=== PATIENT | male | born 1940 | race Caucasian/White ===

== ENCOUNTER 2016-11-30 02:12 | Emergency (ER) | payer MEDICARE ==
[2016-11-30 03:25] LABS: Calcium 9.1 mg/dL (8.4-10.2); Magnesium 2.1 mg/dL (1.6-2.3); Potassium 4.4 mmol/L (3.5-5.1); Total Bilirubin 0.4 mg/dL (0.2-1.3); Total Protein 6.4 g/dL (6.3-8.2)
--- NOTE | 2016-11-30 03:25 | XR ---
EXAM: XR Chest, 1 View CLINICAL HISTORY: syncope TECHNIQUE: Frontal view of the chest. COMPARISON: No relevant prior studies available. FINDINGS: Lungs: Unremarkable. No consolidation. Pleural space: Unremarkable. No pneumothorax. Heart: Unremarkable. No cardiomegaly. Mediastinum: Unremarkable. Bones/joints: Moderate degenerative changes in the visualized osseous structures. Suspect osteopenia IMPRESSION: No acute findings.
[2016-11-30 03:27] LABS: Prothrombin Time 10.1 sec (9.0-12.0)
[2016-11-30 03:30] LABS: Basophils # (A) 0.1 k/uL (0-0.2); Basophils % (A) 1 %; CH 33.8; CHCM 34.1; Eosinophils # (A) 0.2 k/uL (0-0.7); Eosinophils % (A) 3 %; HCT 41.1 % (39.0-53.0); HDW 2.22; HGB 13.8 gm/dL (13.0-17.5); Luc # (Auto) 0.24; Luc % (Auto) 5; Lymphocytes # (A) 2.1 k/uL (1.0-4.8); Lymphocytes % (A) 39 %; MCH 33.5 pg (25.0-35.0); MCHC 33.7 g/dL (31.0-37.0); MCV 99.5 fL (80.0-100.0); Monocytes # (A) 0.5 k/uL (0-1.0); Monocytes % (A) 10 %; Neutrophils # (A) 2.3 k/uL (1.3-7.7); Neutrophils % (A) 43 %; RBC 4.13 m/uL (4.30-5.90); RDW 13.3 % (11.5-15.5); WBC 5.4 k/uL (3.8-10.6); WBC (Perox) 5.62
[2016-11-30 03:36] LABS: Creatine Kinase 177 U/L (55-170); Partial Thromboplastin Time 20.1 sec (22.0-30.0)
[2016-11-30 03:50] LABS: Troponin I <0.012 ng/mL (0.000-0.034)
[2016-11-30 03:51] LABS: Appearance,Urine Clear (Clear); Bilirubin,Urine Negative (Negative); Glucose,Urine (UA) Negative (Negative); Ketones,Urine Negative (Negative); Leukocyte Esterase,Urine Negative (Negative); Nitrite,Urine Negative (Negative); PH, Urine 5.5 (5.0-8.0); Particle Count 866; Protein,Urine Negative (Negative); RBC,Urine 13 /hpf (0-5); Specific Gravity,Urine 1.011 (1.001-1.035); UA Billing (MACRO vs. MICRO) MICRO; Urobilinogen,Urine <2.0 mg/dL (<2.0); WBC,Urine <1 /hpf (0-5)
--- NOTE | 2016-11-30 04:03 | ED ---
Syncope HPI - General Chief Complaint: Syncope Stated Complaint: SYNCOPE Time Seen by Provider: 11/30/16 02:21 Source: EMS Mode of arrival: EMS Limitations: no limitations - Related Data Allergies Allergy/AdvReac Type Severity Reaction Status Date / Time penicillin G AdvReac Unknown Verified 11/30/16 02:31 [From Bicillin L-A] Review of Systems ROS Statement: Those systems with pertinent positive or pertinent negative responses have been documented in the HPI. ROS Other: All systems not noted in ROS Statement are negative. Past Medical History Past Medical History: Atrial Fibrillation, GERD/Reflux, Hyperlipidemia, Hypertension History of Any Multi-Drug Resistant Organisms: None Reported Past Surgical History: Heart Catheterization With Stent Past Psychological History: No Psychological Hx Reported Smoking Status: Former smoker Past Alcohol Use History: Daily, Heavy Past Drug Use History: None Reported General Exam Limitations: no limitations Course Vital Signs 11/30/16 11/30/16 02:15 04:17 Temperature 97.1 F L 98.0 F Pulse Rate 76 81 Respiratory 18 16 Rate Blood Pressure 108/72 95/59 O2 Sat by Pulse 98 97 Oximetry Medical Decision Making - Medical Decision Making Patient reassessed and he is still free of symptoms. Discussed with the patient of the test results and also at this point offered admission for continued cardiac monitoring. The patient states that he does not want stay and that he will follow-up with his physician. We discussed return parameters and appropriate follow-up care. - Lab Data Result diagrams: 11/30/16 02:37 11/30/16 02:37 Lab Results 11/30/16 11/30/16 11/30/16 Range/Units 02:37 02:37 02:37 WBC 5.4 (3.8-10.6) k/uL RBC 4.13 L (4.30-5.90) m/uL Hgb 13.8 (13.0-17.5) gm/dL Hct 41.1 (39.0-53.0) % MCV 99.5 (80.0-100.0) fL MCH 33.5 (25.0-35.0) pg MCHC 33.7 (31.0-37.0) g/dL RDW 13.3 (11.5-15.5) % Plt Count 179 (150-450) k/uL Neutrophils % 43 % Lymphocytes % 39 % Monocytes % 10 % Eosinophils % 3 % Basophils % 1 % Neutrophils # 2.3 (1.3-7.7) k/uL Lymphocytes # 2.1 (1.0-4.8) k/uL Monocytes # 0.5 (0-1.0) k/uL Eosinophils # 0.2 (0-0.7) k/uL Basophils # 0.1 (0-0.2) k/uL PT (9.0-12.0) sec INR (<1.2) APTT (22.0-30.0) sec Sodium 142 (137-145) mmol/L Potassium 4.4 (3.5-5.1) mmol/L Chloride 108 H (98-107) mmol/L Carbon Dioxide 24 (22-30) mmol/L Anion Gap 10 mmol/L BUN 24 H (9-20) mg/dL Creatinine 1.50 H (0.66-1.25) mg/dL Est GFR (MDRD) Af Amer 55 (>60 ml/min/1.73 sqM) Est GFR (MDRD) Non-Af 46 (>60 ml/min/1.73 sqM) Glucose 95 (74-99) mg/dL Plasma Lactic Acid Obed (0.7-2.0) mmol/L Calcium 9.1 (8.4-10.2) mg/dL Magnesium 2.1 (1.6-2.3) mg/dL Total Bilirubin 0.4 (0.2-1.3) mg/dL AST 27 (17-59) U/L ALT 36 (21-72) U/L Alkaline Phosphatase 59 (38-126) U/L Total Creatine Kinase 177 H (55-170) U/L CK-MB (CK-2) 2.0 (0.0-2.4) ng/mL CK-MB (CK-2) Rel Index 1.1 Troponin I <0.012 (0.000-0.034) ng/mL Total Protein 6.4 (6.3-8.2) g/dL Albumin 3.8 (3.5-5.0) g/dL Urine Color Urine Appearance (Clear) Urine pH (5.0-8.0) Ur Specific [place] (1.001-1.035) Urine Protein (Negative) Urine Glucose (UA) (Negative) Urine Ketones (Negative) Urine Blood (Negative) Urine Nitrite (Negative) Urine Bilirubin (Negative) Urine Urobilinogen (<2.0) mg/dL Ur Leukocyte Esterase (Negative) Urine RBC (0-5) /hpf Urine WBC (0-5) /hpf 11/30/16 11/30/16 11/30/16 Range/Units 02:37 02:37 03:34 WBC (3.8-10.6) k/uL RBC (4.30-5.90) m/uL Hgb (13.0-17.5) gm/dL Hct (39.0-53.0) % MCV (80.0-100.0) fL MCH (25.0-35.0) pg MCHC (31.0-37.0) g/dL RDW (11.5-15.5) % Plt Count (150-450) k/uL Neutrophils % % Lymphocytes % % Monocytes % % Eosinophils % % Basophils % % Neutrophils # (1.3-7.7) k/uL Lymphocytes # (1.0-4.8) k/uL Monocytes # (0-1.0) k/uL Eosinophils # (0-0.7) k/uL Basophils # (0-0.2) k/uL PT 10.1 (9.0-12.0) sec INR 1.0 (<1.2) APTT 20.1 L (22.0-30.0) sec Sodium (137-145) mmol/L Potassium (3.5-5.1) mmol/L Chloride (98-107) mmol/L Carbon Dioxide (22-30) mmol/L Anion Gap mmol/L BUN (9-20) mg/dL Creatinine (0.66-1.25) mg/dL Est GFR (MDRD) Af Amer (>60 ml/min/1.73 sqM) Est GFR (MDRD) Non-Af (>60 ml/min/1.73 sqM) Glucose (74-99) mg/dL Plasma Lactic Acid Obed 1.8 (0.7-2.0) mmol/L Calcium (8.4-10.2) mg/dL Magnesium (1.6-2.3) mg/dL Total Bilirubin (0.2-1.3) mg/dL AST (17-59) U/L ALT (21-72) U/L Alkaline Phosphatase (38-126) U/L Total Creatine Kinase (55-170) U/L CK-MB (CK-2) (0.0-2.4) ng/mL CK-MB (CK-2) Rel Index Troponin I (0.000-0.034) ng/mL Total Protein (6.3-8.2) g/dL Albumin (3.5-5.0) g/dL Urine Color Yellow Urine Appearance Clear (Clear) Urine pH 5.5 (5.0-8.0) Ur Specific [place] 1.011 (1.001-1.035) Urine Protein Negative (Negative) Urine Glucose (UA) Negative (Negative) Urine Ketones Negative (Negative) Urine Blood Moderate H (Negative) Urine Nitrite Negative (Negative) Urine Bilirubin Negative (Negative) Urine Urobilinogen <2.0 (<2.0) mg/dL Ur Leukocyte Esterase Negative (Negative) Urine RBC 13 H (0-5) /hpf Urine WBC <1 (0-5) /hpf Disposition Clinical Impression: Near syncope, Micturition syncope, Hematuria Disposition: HOME SELF-CARE Condition: Fair Instructions: Hematuria (ED), Lightheadedness (ED) Referrals: Marisol Diop DO [Primary Care Provider] - 1-2 days
[2016-11-30 04:27] VITALS: BP 95/59; PULSE 81; RESP 16; TEMP 98
== END 2016-11-30 04:23 | disposition home or self-care (01) ==
LOC: EC 02:12
DX: R55 Syncope and collapse (principal); R31.9 Hematuria, unspecified; R39.198 Other difficulties with micturition; Z87.891 Personal history of nicotine dependence
CPT/HCPCS: 36415; 71010; 80053; 81001; 82550; 82553; 83605; 83735; 84484; 85025; 85610; 85730; 93005; 99285

== ENCOUNTER 2017-09-14 18:46 | Inpatient (IN) | payer MEDICARE ==
--- NOTE | 2017-09-14 19:04 | ED ---
General Adult HPI - General Stated complaint: rule out TIA Time Seen by Provider: 09/14/17 18:49 Source: patient, EMS, RN notes reviewed Mode of arrival: EMS Limitations: no limitations - History of Present Illness Initial comments: 77-year-old male presenting for evaluation of confusion and word finding difficulty. Patient's symptoms began at noon which was 7 hours prior to evaluation. He states that been ongoing since that time. He denies any weakness or numbness or tingling. Patient's has had an occipital headache since toxoid 4 PM. He does have history of CAD is currently only on aspirin. No anticoagulation. He is otherwise healthy. He states he did golf 18 holes today. Denies chest pain or shortness of breath. Denies fever or chills. Denies vision changes. - Related Data Home Medications Medication Instructions Recorded Confirmed Aspirin 325 mg PO DAILY 09/14/17 09/14/17 Atenolol [Tenormin] 25 mg PO HS 09/14/17 09/14/17 Cholecalciferol (Vitamin D3) 2,000 unit PO DAILY 09/14/17 09/14/17 [Vitamin D3] Ferrous Sulfate [Feosol] 325 mg PO DAILY 09/14/17 09/14/17 Lansoprazole [Prevacid] 30 mg PO DAILY 09/14/17 09/14/17 Coats-3 Fatty Acids/Fish Oil [Fish 1 cap PO BID 09/14/17 09/14/17 Oil 1,000 mg Softgel] Simvastatin [Zocor] 20 mg PO HS 09/14/17 09/14/17 Ubidecarenone [Co Q-10] 100 mg PO DAILY 09/14/17 09/14/17 Allergies Allergy/AdvReac Type Severity Reaction Status Date / Time penicillin G AdvReac Unknown Verified 09/14/17 19:43 [From Bicillin L-A] Review of Systems ROS Statement: Those systems with pertinent positive or pertinent negative responses have been documented in the HPI. ROS Other: All systems not noted in ROS Statement are negative. Past Medical History Past Medical History: Atrial Fibrillation, GERD/Reflux, Hyperlipidemia, Hypertension History of Any Multi-Drug Resistant Organisms: None Reported Past Surgical History: Heart Catheterization With Stent Past Psychological History: No Psychological Hx Reported Smoking Status: Former smoker Past Alcohol Use History: Daily, Heavy Past Drug Use History: None Reported General Exam Limitations: no limitations General appearance: alert, in no apparent distress Head exam: Present: atraumatic, normocephalic Eye exam: Present: normal appearance, PERRL, EOMI ENT exam: Present: normal exam Neck exam: Present: normal inspection. Absent: tenderness, meningismus Respiratory exam: Present: normal lung sounds bilaterally. Absent: respiratory distress, wheezes Cardiovascular Exam: Present: regular rate. Absent: normal rhythm GI/Abdominal exam: Present: soft. Absent: distended, tenderness Extremities exam: Present: normal inspection, normal capillary refill. Absent: pedal edema, calf tenderness Neurological exam: Present: alert, oriented X3, CN II-XII intact. Absent: motor sensory deficit (No dysarthria, expressive aphasia, NIH is 1, ) Psychiatric exam: Present: normal affect, normal mood Skin exam: Present: warm, dry, intact. Absent: cyanosis, diaphoretic Course Vital Signs 09/14/17 09/14/17 09/14/17 18:53 19:11 20:17 Temperature 97.8 F Pulse Rate 67 65 62 Respiratory 18 18 16 Rate Blood Pressure 134/54 131/67 145/75 O2 Sat by Pulse 99 100 100 Oximetry 09/14/17 21:43 Temperature Pulse Rate 63 Respiratory 18 Rate Blood Pressure 137/77 O2 Sat by Pulse 99 Oximetry EKG Findings - EKG Comments: EKG Findings:: EKG normal sinus rhythm, artifact in leads II, III, and aVF, no definitive signs of ischemia. Rate of 61, TN interval 198, QRS duration 90, QTC 416 Medical Decision Making - Medical Decision Making 77-year-old male presenting with expressive aphasia, NIH is 1. Patient is a long bout of TPA window with presentation occurring [address] is obtained, does show a posterior left parietal infarction, proximally 3 cm in the distribution of the MCA. No intracranial hemorrhage. CT angiography is negative for embolus or occlusion. Laboratory studies including CBC, CMP and troponin are unremarkable. Patient is given aspirin in the emergency department. He will be admitted for further stroke workup. Neurology placed on consult. - Lab Data Result diagrams: 09/14/17 19:00 09/14/17 19:00 Lab Results 09/14/17 09/14/17 09/14/17 Range/Units 19:00 19:00 19:00 WBC 5.2 (3.8-10.6) k/uL RBC 4.03 L (4.30-5.90) m/uL Hgb 13.1 (13.0-17.5) gm/dL Hct 38.7 L (39.0-53.0) % MCV 96.0 (80.0-100.0) fL MCH 32.6 (25.0-35.0) pg MCHC 33.9 (31.0-37.0) g/dL RDW 12.7 (11.5-15.5) % Plt Count 154 (150-450) k/uL Neutrophils % (Manual) 24 % Lymphocytes % (Manual) 61 % Monocytes % (Manual) 9 % Eosinophils % (Manual) 4 % Basophils % (Manual) 2 % Neutrophils # (Manual) 1.25 L (1.3-7.7) k/uL Lymphocytes # (Manual) 3.17 (1.0-4.8) k/uL Monocytes # (Manual) 0.47 (0-1.0) k/uL Eosinophils # (Manual) 0.21 (0-0.7) k/uL Basophils # (Manual) 0.10 (0-0.2) k/uL Nucleated RBCs 0 (0-0) /100 WBC Manual Slide Review Performed RBC Morphology Normal PT (9.0-12.0) sec INR (<1.2) APTT (22.0-30.0) sec Sodium 140 (137-145) mmol/L Potassium 4.3 (3.5-5.1) mmol/L Chloride 103 (98-107) mmol/L Carbon Dioxide 26 (22-30) mmol/L Anion Gap 11 mmol/L BUN 22 H (9-20) mg/dL Creatinine 1.34 H (0.66-1.25) mg/dL Est GFR (CKD-EPI)AfAm 60 (>60 ml/min/1.73 sqM) Est GFR (CKD-EPI)NonAf 52 (>60 ml/min/1.73 sqM) Glucose 110 H (74-99) mg/dL Calcium 8.9 (8.4-10.2) mg/dL Total Bilirubin 0.5 (0.2-1.3) mg/dL AST 30 (17-59) U/L ALT 33 (21-72) U/L Alkaline Phosphatase 56 (38-126) U/L Total Creatine Kinase 164 (55-170) U/L CK-MB (CK-2) 1.3 (0.0-2.4) ng/mL CK-MB (CK-2) Rel Index 0.8 Troponin I <0.012 (0.000-0.034) ng/mL Total Protein 6.2 L (6.3-8.2) g/dL Albumin 4.0 (3.5-5.0) g/dL 09/14/17 Range/Units 19:00 WBC (3.8-10.6) k/uL RBC (4.30-5.90) m/uL Hgb (13.0-17.5) gm/dL Hct (39.0-53.0) % MCV (80.0-100.0) fL MCH (25.0-35.0) pg MCHC (31.0-37.0) g/dL RDW (11.5-15.5) % Plt Count (150-450) k/uL Neutrophils % (Manual) % Lymphocytes % (Manual) % Monocytes % (Manual) % Eosinophils % (Manual) % Basophils % (Manual) % Neutrophils # (Manual) (1.3-7.7) k/uL Lymphocytes # (Manual) (1.0-4.8) k/uL Monocytes # (Manual) (0-1.0) k/uL Eosinophils # (Manual) (0-0.7) k/uL Basophils # (Manual) (0-0.2) k/uL Nucleated RBCs (0-0) /100 WBC Manual Slide Review RBC Morphology PT 9.8 (9.0-12.0) sec INR 1.0 (<1.2) APTT 22.4 (22.0-30.0) sec Sodium (137-145) mmol/L Potassium (3.5-5.1) mmol/L Chloride (98-107) mmol/L Carbon Dioxide (22-30) mmol/L Anion Gap mmol/L BUN (9-20) mg/dL Creatinine (0.66-1.25) mg/dL Est GFR (CKD-EPI)AfAm (>60 ml/min/1.73 sqM) Est GFR (CKD-EPI)NonAf (>60 ml/min/1.73 sqM) Glucose (74-99) mg/dL Calcium (8.4-10.2) mg/dL Total Bilirubin (0.2-1.3) mg/dL AST (17-59) U/L ALT (21-72) U/L Alkaline Phosphatase (38-126) U/L Total Creatine Kinase (55-170) U/L CK-MB (CK-2) (0.0-2.4) ng/mL CK-MB (CK-2) Rel Index Troponin I (0.000-0.034) ng/mL Total Protein (6.3-8.2) g/dL Albumin (3.5-5.0) g/dL Critical Care Time Critical Care Time: Yes Total Critical Care Time: 35 Disposition Clinical Impression: Cerebrovascular accident Disposition: ADMITTED IP TO THIS [facility] Condition: Serious Is patient prescribed a controlled substance at d/c from ED?: No Referrals: Marisol Diop DO [Primary Care Provider] - 1-2 days Decision to Admit Reason: Admit from EC Decision Date: 09/14/17 Decision Time: 21:47
[2017-09-14 19:20] LABS: Calcium 8.9 mg/dL (8.4-10.2); Potassium 4.3 mmol/L (3.5-5.1); Total Bilirubin 0.5 mg/dL (0.2-1.3); Total Protein 6.2 g/dL (6.3-8.2)
[2017-09-14 19:22] LABS: Partial Thromboplastin Time 22.4 sec (22.0-30.0); Prothrombin Time 9.8 sec (9.0-12.0)
[2017-09-14 19:27] LABS: HCT 38.7 % (39.0-53.0); HGB 13.1 gm/dL (13.0-17.5); MCH 32.6 pg (25.0-35.0); MCHC 33.9 g/dL (31.0-37.0); Mean Platelet Volume 7.2; Platelet Count 154 k/uL (150-450); RBC 4.03 m/uL (4.30-5.90); RDW 12.7 % (11.5-15.5); WBC 5.2 k/uL (3.8-10.6)
[2017-09-14 19:31] LABS: Creatine Kinase 164 U/L (55-170)
--- NOTE | 2017-09-14 19:34 | CT ---
EXAMINATION: CT brain wo con DATE AND TIME: 09/14/2017 7:22 PM ORDERING PROVIDER: Delroy Nunez MD CLINICAL INDICATION: Neuro Deficits TECHNIQUE: Standard departmental protocol. DLP 1090 mGy-cm. COMPARISON: None. DESCRIPTION: The calvarium is intact. There is no intracranial hemorrhage. There is no mass or mass e ffect. There is a 3 cm zone of low-attenuation posteriorly within the left parietal lobe, extending from a p eriventricular position to the cortex. There is no associated mass effect or volume loss. The finding is consistent with nonhemorrhagic infarction in the vascular territory of the left MCA. There is no other definite new attenuation defect. There are no foci evidence of encephalomalacia to suggest prior infarction. Remainder of the intra-axial and extra-axial compartment examination is unremarkable. The paranasal sinuses, middle ear cavities, and mastoid sinus air cells are clear. The orbits are int act. 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
--- NOTE | 2017-09-14 19:36 | XR ---
EXAMINATION: XR chest 3V DATE AND TIME: 09/14/2017 7:30 PM ORDERING PROVIDER: Delroy Nunez MD CLINICAL INDICATION: altered mental status TECHNIQUE: 2 PA and 1 lateral COMPARISON: 11/30/2016 DESCRIPTION: The lungs are clear. The pleural spaces are negative. The cardiac silhouette is not enlarged. The mediastinal and pleural silhouettes are unremarkable. The skeletal structures are intact without focal findings. The soft tissues are unremarkable. IMPRESSION: NO ACUTE PROCESS.
[2017-09-14] MEDS ORDERED: RX INFO: IV CONTRAST WAS GIVEN 1 EACH MISC MISCELLANE PRN (19:40)
[2017-09-14 19:44] LABS: Creatine Kinase MB 1.3 ng/mL (0.0-2.4); Troponin I <0.012 ng/mL (0.000-0.034)
[2017-09-14] MEDS ORDERED: ASPIRIN 325 MG TAB PO STA (19:51)
[2017-09-14 20:08] LABS: Eosinophils # (M) 0.21 k/uL (0-0.7); Lymphocytes # (M) 3.17 k/uL (1.0-4.8); Monocytes # (M) 0.47 k/uL (0-1.0); Neutrophils # (M) 1.25 k/uL (1.3-7.7); Neutrophils % (M) 24 %; Nucleated Red Blood Cells 0 /100 WBC (0-0); Total Cells Counted 100
--- NOTE | 2017-09-14 20:45 | CT ---
EXAMINATION TYPE: CT angio head neck contrast and with 3-D reconstruction renderings DATE OF EXAM: 09/14/2017 HISTORY: Neuro deficits. COMPARISON: Precontrast brain CT 7:[address] DLP: 255.7 mGycm. Automated Exposure Control for Dose Reduction was Utilized. TECHNIQUE: Departmental protocol CTA scan of the neck is performed with IV Contrast, patient injecte d with 65ml mL of Isovue 370, axial images are obtained, coronal and sagittal reformatted images are reviewed. Three-D reconstructed images are created on an independent workstation and reviewed. FINDINGS: Neck CTA findings: The origins of the great vessels at the aortic arch are widely patent. There are b ilateral carotid siphon stenoses, which do not appear to be hemodynamically significant. The ICA are patent bilaterally. The vertebral arteries are patent bilaterally. Venous structures are unremarkable . The visualized extravascular structures are also unremarkable. Brain CTA findings: The anterior circulation is widely patent. The posterior circulation is widely pa tent. Symmetry is noted. There are no filling defects to suggest emboli and no significant stenoses. The contrast enhancement pattern is unremarkable. Intra-axial and extra-axial compartment evaluation is unremarkable. IMPRESSION: No significant CTA abnormality is seen.
[2017-09-14] MEDS: SODIUM CHLORIDE 0.9% 1,000 ML IV SCH (22:06)
[2017-09-14 22:48] VITALS: BMI 24.3
[2017-09-15 06:59] LABS: Cholesterol 137 mg/dL (<200); HDL Cholesterol 43 mg/dL (40-60); LDL Cholesterol,Calculated 65 mg/dL (0-99); Triglycerides 147 mg/dL (<150)
[2017-09-15] MEDS ORDERED: ASPIRIN 325 MG TAB PO SCH (09:00)
--- NOTE | 2017-09-15 10:21 | ECHOF ---
Referral Reason:Thrombus MEASUREMENTS -------- HEIGHT: 175.3 cm WEIGHT: 75.7 kg BP: 129/58 RVIDd: 3.1 cm (< 3.3) IVSd: 1.0 cm (0.6 - 1.1) LVIDd: 3.1 cm (3.9 - 5.3) LVPWd: 0.9 cm (0.6 - 1.1) IVSs: 1.4 cm LVIDs: 2.1 cm LVPWs: 1.2 cm LA Diam: 2.6 cm (2.7 - 3.8) LAESV Index (A-L): 24.95 ml/m Ao Diam: 3.6 cm (2.0 - 3.7) AV Cusp: 2.1 cm (1.5 - 2.6) MV EXCURSION: 11.280 mm (> 18.000) MV EF SLOPE: 89 mm/s (70 - 150) EPSS: 0.6 cm MV E Gelacio: 0.73 m/s MV DecT: 242 ms MV A Gelacio: 0.65 m/s MV E/A Ratio: 1.12 FINDINGS -------- Sinus rhythm. This was a technically adequate study. The left ventricular size is normal. Left ventricular wall thickness is normal. Overall left vent ricular systolic function is normal with, an EF between 55 - 60 %. The right ventricle is normal in size. Normal LA size by volume 22+/-6 ml/m2. The right atrium is normal in size. The aortic valve is trileaflet and appears structurally normal. There is trace mitral regurgitation. The tricuspid valve appears structurally normal. There is no pulmonic regurgitation present. The aortic root size is normal. Normal inferior vena cava with normal inspiratory collapse consistent with estimated right atrial pre ssure of 5 mmHg. There is no pericardial effusion. CONCLUSIONS -------- 1. Sinus rhythm. 2. This was a technically adequate study. 3. The left ventricular size is normal. 4. Left ventricular wall thickness is normal. 5. Overall left ventricular systolic function is normal with, an EF between 55 - 60 %. 6. The right ventricle is normal in size. 7. Normal LA size by volume 22+/-6 ml/m2. 8. The right atrium is normal in size. 9. The aortic valve is trileaflet and appears structurally normal. 10. There is trace mitral regurgitation. 11. The tricuspid valve appears structurally normal. 12. There is no pulmonic regurgitation present. 13. The aortic root size is normal. 14. Normal inferior vena cava with normal inspiratory collapse consistent with estimated right atrial pressure of 5 mmHg. 15. There is no pericardial effusion. TECHNOLOGY TRAINER: Radha Duffy RDCS
[2017-09-15] MEDS ORDERED: NON-FORMULARY DRUG (Omega-3 Fatty Acids/Fish Oil [Fish Oil 1,000 Mg Softgel] 1 CAP) PO SCH (13:00)
[2017-09-15] MEDS ORDERED: NON-FORMULARY DRUG (Ubidecarenone [Co Q-10] 100 MG) PO SCH (13:00)
--- NOTE | 2017-09-15 14:40 | P.CNNES ---
History of Present Illness Consult date: 09/15/17 Requesting physician: Rocky Braun Reason for Consult: CVA History of Present Illness: Patient is a pleasant 77-year-old male who is being evaluated by the neurology service on 09/15/2017 per the request of Dr. Braun for CVA. Patient states he woke up yesterday morning as he normally does and he did not have symptoms at that time. Patient states he had gone golfing and had golfed 18 holes without problems. He came home and ate lunch and walked to do well which is on his property. Patient states the well is down a little hill and he reports symptoms began at that time. Patient reports he had a hard time getting back up the hill and he became disoriented and started wandering. Patient did make his way back into the house and sat down to rest. Patient states he had difficulty reading and had called his son who advised him to come to the emergency room. Patient's had called EMS and patient was brought to [facility] for further evaluation. Patient denies any recurrence of symptoms. Patient is on aspirin 325 mg by mouth daily in the home setting. Patient denies any lateralizing weakness. Patient denies any speech difficulty but chart states patient had expressive aphasia on admission. Patient had CT of the brain done on admission which showed posterior left parietal lobe 3 cm nonhemorrhagic infarction, and the vascular territory of the left MCA. Patient had CT angiogram of the head and neck which showed no significant abnormality. Vital signs on admission were temperature 97.8, pulse 67, respiratory rate 18, and blood pressure 134/54. Oxygen saturation was 99% on room air. Admission Were Mostly Unremarkable except for Elevated BUN of 22 and Creatinine of 1.34. Lipid Panel Was within Normal Limits. At the time of my evaluation, patient's resting comfortably in bed and appears to be in no acute distress. Review of Systems REVIEW OF SYSTEMS: Otherwise unremarkable and noncontributory. Past Medical History Past Medical History: Atrial Fibrillation, GERD/Reflux, Hyperlipidemia, Hypertension History of Any Multi-Drug Resistant Organisms: None Reported Past Surgical History: Heart Catheterization With Stent Date of Last Stent Placement:: 2008 Past Psychological History: No Psychological Hx Reported Smoking Status: Former smoker Past Alcohol Use History: Daily, Heavy Past Drug Use History: None Reported - Past Family History Father Family Medical History: Myocardial Infarction ([place]) Mother Family Medical History: Cancer Additional Family Medical History / Comment(s): colon cancer Medications and Allergies Home Medications Medication Instructions Recorded Confirmed Type Aspirin 325 mg PO DAILY 09/14/17 09/14/17 History Atenolol [Tenormin] 25 mg PO HS 09/14/17 09/14/17 History Cholecalciferol (Vitamin D3) 2,000 unit PO DAILY 09/14/17 09/14/17 History [Vitamin D3] Ferrous Sulfate [Feosol] 325 mg PO DAILY 09/14/17 09/14/17 History Lansoprazole [Prevacid] 30 mg PO DAILY 09/14/17 09/14/17 History [place]-3 Fatty Acids/Fish Oil [Fish 1 cap PO BID 09/14/17 09/14/17 History Oil 1,000 mg Softgel] Simvastatin [Zocor] 20 mg PO HS 09/14/17 09/14/17 History Ubidecarenone [Co Q-10] 100 mg PO DAILY 09/14/17 09/14/17 History Allergies Allergy/AdvReac Type Severity Reaction Status Date / Time penicillin G AdvReac Unknown Verified 09/14/17 19:43 [From Bicillin L-A] Physical Examination - Vital Signs Vital Signs: Vital Signs Temp Pulse Pulse Resp BP BP Pulse Ox 09/15/17 11:53 65 16 123/69 96 09/15/17 11:15 16 09/15/17 08:00 66 16 113/56 99 09/15/17 02:44 68 16 129/58 98 09/15/17 00:44 52 L 126/64 98 09/14/17 23:44 68 16 130/64 98 09/14/17 22:23 96.4 F L 58 L 14 126/76 99 09/14/17 22:05 98.6 F 09/14/17 21:43 63 18 137/77 99 09/14/17 20:17 62 16 145/75 100 09/14/17 19:11 65 18 131/67 100 09/14/17 18:53 97.8 F 67 18 134/54 99 Intake and Output 09/14/17 09/15/17 09/15/17 22:59 06:59 14:59 Intake Total 200 Output Total 400 475 Balance -200 -475 Intake: Intake, IV Titration 200 Amount Sodium Chloride 0.9% 1, 200 000 ml @ 100 mls/hr IV . Q10H [facility] Rx#:[id number] Output: Urine 400 475 Other: Voiding Method Toilet Toilet Urinal Urinal # Voids 1 Weight 74.843 kg 76.1 kg PHYSICAL EXAM: GENERAL APPEARANCE: Patient is a well-developed, male who appears to be in no acute distress. HEENT: Normocephalic, atraumatic, no facial asymmetry is seen. Neck is supple with no masses felt. CARDIOVASCULAR: Regular rate and rhythm. ABDOMEN: Nontender, nondistended. EXTREMITIES: Show no edema or clubbing. NEUROLOGICAL EXAM: Patient is awake, alert, and oriented 3. Speech and language are normal. Strength is full in all 4 extremities. Sensory exam to light touch is normal in all 4 extremities. No facial asymmetry seen on cranial nerve testing. No pronator drift noted. No tremors or seizure-like activity noted. Results - Laboratory Findings CBC and BMP: 09/14/17 19:00 09/14/17 19:00 Abnormal Lab Findings: Abnormal Labs 09/14/17 09/14/17 19:00 19:00 RBC 4.03 L Hct 38.7 L Neutrophils # (Manual) 1.25 L BUN 22 H Creatinine 1.34 H Glucose 110 H Total Protein 6.2 L Assessment and Plan Plan: Impression: 1. CVA/left MCA distribution 2. CAD/history of stent 3. Hypertension 4. Hyperlipidemia 5. Expressive aphasia, resolved Recommendation: It does appear patient had a cerebrovascular accident with episode of confusion and expressive aphasia. Symptoms have since resolved. As mentioned above, CT of the brain showed posterior left parietal lobe 3 cm nonhemorrhagic infarction, in the vascular territory of the left MCA distribution. CTA of the head and neck showed no significant stenosis or abnormality. EKG showed sinus rhythm. I will switch aspirin to Plavix 75 mg by mouth daily. I will order an MRI of the brain. I will order an EEG, fasting lipid panel, and serum homocysteine level. I recommend speech therapy consult as patient states he is having word finding difficulty at times. I will continue to follow with you. Further recommendations to follow. Thank you for allowing me to participate in the care of your patient. Feel free to call with any questions or concerns. I performed an examination of the patient and discussed the management with the CNA CAREGIVER. I have reviewed the CNA CAREGIVER notes and agree with the findings and plan of care.
[2017-09-15] MEDS ORDERED: ONDANSETRON 4 MG/2 ML VIAL IVP PRN (15:16)
[2017-09-15] MEDS ORDERED: ALPRAZolam 0.25 MG TAB PO PRN (15:16)
[2017-09-15] MEDS ORDERED: NALOXONE 0.4 MG/ML 1 ML VIAL IV PRN (15:16)
[2017-09-15] MEDS ORDERED: ACETAMINOPHEN TAB 325 MG TAB PO PRN (15:16)
[2017-09-15] MEDS ORDERED: MELATONIN 3 MG TABLET PO PRN (15:16)
--- NOTE | 2017-09-15 16:34 | HP ---
HISTORY AND PHYSICAL DATE OF ADMISSION: 09/14/2017 DATE OF SERVICE: 09/15/2017 PRESENTING COMPLAINT: Acute confusion. HISTORY OF PRESENTING COMPLAINT: A very pleasant 77-year-old patient of Dr. Marisol Diop. Chronic stable medical conditions include GERD, hypertension, hyperlipidemia, coronary artery disease with stent in 2008. Patient yesterday was playing golf and then he just did not feel right. The ball was in the pit and he had no trouble going down, but he just felt things were off. He came home and he was somewhat disorganized. His words were fine. Speech was okay. Just a bit disorganized. He was doing things just not the right way. He did complain of some double vision and then later complained of a headache. There was no weakness in the arms or legs. The patient was brought into the ER. Initial CT scan of the brain did show a posterior left parietal lobe non-hemorrhagic infarction in the territory of the left MCA. Patient was started on aspirin, switched over to Plavix by Neurology. Patient is still having trouble ing. Patient's and daughter are at the bedside. No prior history of stroke. REVIEW OF SYSTEMS: CONSTITUTIONAL: None. HEENT: Vision as above. RESPIRATORY: None. CARDIOVASCULAR: None. GASTROINTESTINAL: None. GENITOURINARY: None. MUSCULOSKELETAL: None. DERMATOLOGICAL: None. HEMATOLOGICAL: None. LYMPHATICS: None. PSYCHIATRY: None. NEUROLOGICAL: As above. PAST MEDICAL HISTORY: 1. Atrial fibrillation. 2. GERD. 3. Hypertension. 4. Hyperlipidemia. 5. Coronary artery disease with stent in 2008. PAST SURGICAL HISTORY: Cardiac cath with stent in 2008. SOCIAL HISTORY: The patient does drink alcohol. He did smoke in the past. . FAMILY HISTORY: Myocardial infarction, colon cancer. HOME MEDICATIONS: 1. CO-Q-10 100 mg p.o. daily. 2. Vitamin D3 2000 units p.o. daily. 3. Tenormin 25 mg at bedtime. 4. Fish oil 1 capsule p.o. b.i.d. 5. Zocor 20 mg at bedtime. 6. Iron 325 p.o. daily. 7. Prevacid 30 mg p.o. daily. 8. Aspirin 325 p.o. daily. ALLERGIES: PENICILLIN. PHYSICAL EXAMINATION: Temperature 96.4, pulse 50, respiration 14, blood pressure 126/76, pulse ox 99% on room air. GENERAL APPEARANCE: Average build. Sitting up, comfortable. EYES: Pupils equal. Conjunctivae normal. HEENT: External appearance of nose and ears normal. Oral cavity normal. NECK: JVD not raised. Mass not palpable. RESPIRATORY: Effort normal. Lungs are clear. CARDIOVASCULAR: First and second sounds normal. No edema. ABDOMEN: Soft, nontender. Liver and spleen not palpable. LYMPHATIC: No lymph node palpable in neck or axillae. PSYCHIATRY: Alert and oriented x3. Mood and affect normal. NEUROLOGICAL: Cranial nerves: patient has lack of vision on the right side of his vision field. Otherwise, power and sensation are grossly intact. INVESTIGATIONS: White count 5.2, hemoglobin 13.1, potassium 4.3, BUN 22, creatinine 1.34. CT scan of the brain shows stroke on the left parietal side. ASSESSMENT: 1. Acute stroke, ischemic, in the left parietal area in the territory of the left middle cerebral artery in a right-handed patient causing right homonymous hemianopia. 2. Paroxysmal atrial fibrillation, currently in sinus rhythm. 3. Gastroesophageal reflux disease. 4. Essential hypertension. 5. Hyperlipidemia. 6. Coronary artery disease with prior history of stent. 7. Chronic kidney disease, stage III, probably from nephrosclerosis. PLAN: Patient's aspirin was changed over to Plavix. Will discontinue the Zocor and add Lipitor starting tonight 40 mg a day. Physical Therapy will be consulted. Patient was seen by Neurology. Care was discussed with the patient and his . Questions were answered. MMODL / IJN: [id number] /
[2017-09-15] MEDS: PANTOPRAZOLE 40 MG TABLET PO SCH (17:13)
[2017-09-15] MEDS: CHOLECALCIFEROL 1,000 UNIT TAB PO SCH (17:13)
[2017-09-15] MEDS: FERROUS SULFATE 325 MG TAB PO SCH (17:13)
[2017-09-15] MEDS: CLOPIDOGREL 75 MG TAB PO SCH (17:14)
[2017-09-15] MEDS: ATORVASTATIN 40 MG TAB PO SCH (17:15)
--- NOTE | 2017-09-15 20:29 | MR ---
EXAMINATION TYPE: MR brain wo con DATE OF EXAM: 09/15/2017 COMPARISON: CT 09/14/2017 HISTORY: 77-year-old male Neuro deficits, expressive aphasia, CVA TECHNIQUE: Multiplanar, multisequence images of the brain and brainstem were acquired without IV con trast; Diffusion weighted imaging is performed. FINDINGS: DWI confirms a 4.5 cm area of restricted diffusion and acute infarct in the posterior left parietal l obe involving the cortical region. There is corresponding increased T2/FLAIR weighted signal. T2/FLAIR weighted sequences show moderate scattered burden of bright white matter change particularly in the subcortical and deep white matter regions of both cerebral hemispheres. No midline shift, herniation, effacement of basal cisterns, or extra-axial fluid collection. The ventricles and sulci are age-appropriate. Major intracranial flow voids are intact. Midline structures demonstrate normal morphology. The craniocervical junction is normal. The visualized sinuses are clear and the globes are intact. IMPRESSION: 1. Acute cortical infarct involving a 4.5 cm region of the posterior left parietal lobe greater than 6 hours in duration. 2. No midline shift.
[2017-09-15] MEDS: ATENOLOL 25 MG TAB PO SCH (20:38)
[2017-09-15] MEDS: SODIUM CHLORIDE 0.9% 1,000 ML IV SCH (20:40)
[2017-09-15] MEDS ORDERED: ATORVASTATIN 10 MG TAB PO SCH (21:00)
[2017-09-16] MEDS: PANTOPRAZOLE 40 MG TABLET PO SCH (06:19)
[2017-09-16] MEDS: CHOLECALCIFEROL 1,000 UNIT TAB PO SCH (07:37)
[2017-09-16] MEDS: ATORVASTATIN 40 MG TAB PO SCH (07:38)
[2017-09-16] MEDS: FERROUS SULFATE 325 MG TAB PO SCH (07:38)
[2017-09-16] MEDS: CLOPIDOGREL 75 MG TAB PO SCH (07:38)
[2017-09-16] MEDS: ATENOLOL 25 MG TAB PO SCH (07:38)
[2017-09-16] MEDS ORDERED: ASPIRIN 325 MG TAB PO SCH (09:00)
--- NOTE | 2017-09-16 19:03 | P.PN ---
Subjective Progress Note Date: 09/16/17 Patient is a pleasant 77-year-old male who is being followed by the neurology service for stroke. Patient had episode of confusion and disorganization. Patient also states he was having some visual difficulty as well. Patient states he could see the letters on the page but he could not read words. He denies any lateralizing weakness. He denies any speech difficulty. Patient came to [facility] for evaluation. Computed tomography scan of the brain showed posterior left parietal lobe nonhemorrhagic infarction in the territory of the left MCA. MRI was done which showed acute cortical infarct involving region of the posterior left parietal lobe. Patient is on Plavix 75 mg daily. Patient states he is getting better however he is not yet back to baseline. At the time of my evaluation, patient' s resting comfortably in bed and appears to be in no acute distress. Objective - Vital Signs Vital signs: Vital Signs Temp 96.7 F L 09/16/17 16:00 Pulse 59 L 09/16/17 16:00 Resp 16 09/16/17 16:00 BP 113/57 09/16/17 16:00 Pulse Ox 97 09/16/17 16:00 Intake & Output 09/15/17 09/16/17 09/16/17 18:59 06:59 18:59 Intake Total 337 712 Output Total 850 Balance -513 712 Weight 75.3 kg Intake: Oral 337 712 Output: Urine 850 Other: Voiding Method Toilet Toilet Toilet Urinal Urinal Urinal # Voids 1 1 - Exam PHYSICAL EXAM: GENERAL APPEARANCE: Patient is a well-developed, male who appears to be in no acute distress. HEENT: Normocephalic, atraumatic, no facial asymmetry is seen. Neck is supple with no masses felt. CARDIOVASCULAR: Regular rate and rhythm. ABDOMEN: Nontender, nondistended. EXTREMITIES: Show no edema or clubbing. NEUROLOGICAL EXAM: Patient is awake, alert, and oriented 3. Speech and language are normal. Patient has a right visual field cut. Strength is full in all 4 extremities. Sensory exam to light touch is normal in all 4 extremities. No facial asymmetry seen on cranial nerve testing. No tremors or seizure-like activity noted. - Labs CBC & Chem 7: 09/14/17 19:00 09/14/17 19:00 Assessment and Plan Plan: Impression: 1. CVA/left posterior parietal lobe 2. CAD/history of stent 3. Hypertension 4. Hyperlipidemia 5. Expressive aphasia, resolved 6. Right visual field cut Recommendation: It does appear patient had a cerebrovascular accident with episode of confusion and disorganization. Patient has right visual field cut. Symptoms are resolving. As mentioned above, CT of the brain showed posterior left parietal lobe 3 cm nonhemorrhagic infarction, in the vascular territory of the left MCA distribution. CTA of the head and neck showed no significant stenosis or abnormality. EKG showed sinus rhythm. MRI showed acute cortical infarct involving posterior left parietal lobe. Continue Plavix 75 mg by mouth daily. EEG was done and results are pending. His fasting lipid panel was normal and serum homocysteine level result is pending. Patient is stable from a neurological standpoint for discharge tomorrow. I will continue to follow with you. Further recommendations to follow. I performed an examination of the patient and discussed the management with the CARPET CUTTER. I have reviewed the CARPET CUTTER notes and agree with the findings and plan of care.
--- NOTE | 2017-09-16 22:50 | PN ---
PROGRESS NOTE DATE OF SERVICE: 09/16/2017 PRESENTING COMPLAINT: Stroke. HISTORY OF PRESENTING COMPLAINT: This patient presented with stroke affecting comprehension of his speech and also the visual field. The patient's vision did improve yesterday evening. The patient actually was able to read his novel. MRI did confirm a parietal lobe stroke. No other symptoms. REVIEW OF SYSTEMS: Done for constitutional, cardiovascular, GI, pulmonary; relevant findings as above. CURRENT MEDICATIONS: Reviewed that include: 1. Plavix. 2. Lipitor. EXAMINATION: Temperature 97.4, pulse 60, respirations 18, blood pressure 124/81, pulse ox 99% on room air. GENERAL APPEARANCE: Sitting up, comfortable. EYES: Pupils equal. Conjunctivae normal. HEENT: External appearance of nose and ears normal. Oral cavity normal. NECK: JVD not raised. Mass not palpable. RESPIRATORY: Effort normal. Lungs are clear. CARDIOVASCULAR: First and second sounds normal. No edema. ABDOMEN: Soft, nontender. Liver and spleen not palpable. PSYCHIATRY: Alert and oriented x3. Mood and affect normal. NEUROLOGICAL: The patient states his visual field is better. He is able to actually read a book today. INVESTIGATIONS: LDL is 65. MRI shows a parietal lobe stroke. ASSESSMENT: 1. Acute stroke, ischemic, in the left parietal area of the left middle cerebral artery causing homonymous hemianopia, which is actually improving and also probably affecting the speech area. 2. Paroxysmal atrial fibrillation, currently in sinus rhythm. 3. Gastroesophageal reflux disease. 4. Essential hypertension. 5. Hyperlipidemia. 6. Coronary artery disease with prior history of stent. 7. Chronic kidney disease stage 3, probably from nephrosclerosis. PLAN: Care was discussed with the patient. Given the history of given history of atrial fibrillation, will consult Cardiology to do a HEIDY. MMODL / IJN: [id number] /
[2017-09-17] MEDS: PANTOPRAZOLE 40 MG TABLET PO SCH (06:16)
[2017-09-17] MEDS: FERROUS SULFATE 325 MG TAB PO SCH (07:56)
[2017-09-17] MEDS: ATORVASTATIN 40 MG TAB PO SCH (07:56)
[2017-09-17] MEDS: CLOPIDOGREL 75 MG TAB PO SCH (07:56)
[2017-09-17] MEDS: CHOLECALCIFEROL 1,000 UNIT TAB PO SCH (07:56)
--- NOTE | 2017-09-17 14:14 | P.CRDCN ---
History of Present Illness Consult date: 09/17/17 History of present illness: This is a 77-year-old gentleman with history of ischemic heart disease and previous stent placement done in 2008, and also history of cardiac arrhythmia in the form of APCs and also paroxysmal atrial fibrillation. Apparently he was advised to be on anticoagulation therapy but patient refused. Yesterday, patient was playing golf and developed slight confusion and was not feeling well. Patient went home and apparently was doing things differently. Patient was brought to the hospital and evaluation is consistent with new CVA. Patient has been in sinus rhythm since coming here. Patient was seen by neurology and was advised to change aspirin to Plavix. In view of his history of atrial fibrillation, we're asked to be a HEIDY to rule out intracardiac source of emboli. I discussed with the patient regarding the need to go on anti- cognition therapy,in view of his paroxysmal atrial fibrillation. Patient wants to go on Coumadin. We'll start him on Coumadin after the HEIDY. This is being arranged for tomorrow Review of Systems As per the chart Past Medical History Past Medical History: Atrial Fibrillation, GERD/Reflux, Hyperlipidemia, Hypertension History of Any Multi-Drug Resistant Organisms: None Reported Past Surgical History: Heart Catheterization With Stent Date of Last Stent Placement:: 2008 Past Psychological History: No Psychological Hx Reported Smoking Status: Former smoker Past Alcohol Use History: Daily, Heavy Past Drug Use History: None Reported - Past Family History Father Family Medical History: Myocardial Infarction ([place]) Mother Family Medical History: Cancer Additional Family Medical History / Comment(s): colon cancer Medications and Allergies Home Medications Medication Instructions Recorded Confirmed Type Aspirin 325 mg PO DAILY 09/14/17 09/14/17 History Atenolol [Tenormin] 25 mg PO HS 09/14/17 09/14/17 History Cholecalciferol (Vitamin D3) 2,000 unit PO DAILY 09/14/17 09/14/17 History [Vitamin D3] Ferrous Sulfate [Feosol] 325 mg PO DAILY 09/14/17 09/14/17 History Lansoprazole [Prevacid] 30 mg PO DAILY 09/14/17 09/14/17 History [place]-3 Fatty Acids/Fish Oil [Fish 1 cap PO BID 09/14/17 09/14/17 History Oil 1,000 mg Softgel] Simvastatin [Zocor] 20 mg PO HS 09/14/17 09/14/17 History Ubidecarenone [Co Q-10] 100 mg PO DAILY 09/14/17 09/14/17 History Allergies Allergy/AdvReac Type Severity Reaction Status Date / Time penicillin G AdvReac Unknown Verified 09/14/17 19:43 [From Bicillin L-A] Physical Exam Vitals: Vital Signs Temp Pulse Resp BP Pulse Ox 09/17/17 12:00 71 16 108/70 98 09/17/17 08:00 16 09/17/17 07:54 97.2 F L 16 118/59 96 09/17/17 04:00 97.9 F 61 16 133/63 96 09/17/17 00:00 59 L 18 105/55 97 09/16/17 20:43 96 09/16/17 20:00 97.4 F L 60 18 124/81 99 09/16/17 16:00 96.7 F L 59 L 16 113/57 97 09/16/17 15:06 16 Intake and Output 09/16/17 09/17/17 09/17/17 22:59 06:59 14:59 Intake Total 236 240 Balance 236 240 Intake: Oral 236 240 Other: Voiding Method Toilet Toilet Toilet Urinal Urinal Urinal # Voids 1 Weight 73.9 kg GENERAL EXAM: Patient is alert and oriented and doesn't appear to be in any acute distress HEENT: Normocephalic. Normal reaction of pupils, equal size, normal range of extraocular motion. No erythema or exudates in the throat. NECK: No masses, no nuchal rigidity. CHEST: No chest wall deformity. LUNGS: Equal air entry with no crackles or wheeze. HEART: S1 and S2 normal with no audible mumurs or gallops. Regular rhythm, femorals equal on both sides.. ABDOMEN: No hepatosplenomegaly, normal bowel sounds, no guarding or rigidity. SKIN: No rashes CENTRAL NERVOUS SYSTEM: Patient appears to be patent with his speech EXTREMITIES: No cyanosis, clubbing or edema. Results 09/14/17 19:00 09/14/17 19:00 Current Medications Generic Name Dose Route Start Last Admin Trade Name Freq PRN Reason Stop Dose Admin Acetaminophen 650 mg 09/15/17 15:16 Tylenol Tab PO Q6HR PRN Mild Pain or Fever > 100.5 Alprazolam 0.25 mg 09/15/17 15:16 Xanax PO Q6HR PRN Anxiety Atenolol 25 mg 09/15/17 21:00 09/16/17 07:38 Tenormin PO 25 mg HS SARA Administration Atorvastatin Calcium 40 mg 09/15/17 15:15 09/17/17 07:56 Lipitor PO 40 mg DAILY SARA Administration Cholecalciferol 2,000 unit 09/15/17 13:00 09/17/17 07:56 Vitamin D3 PO 2,000 unit 1200 SARA Administration Clopidogrel Bisulfate 75 mg 09/15/17 14:45 09/17/17 07:56 Plavix PO 75 mg DAILY SARA Administration Ferrous Sulfate 325 mg 09/15/17 13:00 09/17/17 07:56 Feosol PO 325 mg 1200 SARA Administration Melatonin 3 mg 09/15/17 15:16 Melatonin PO HS PRN Insomnia Naloxone HCl 0.2 mg 09/15/17 15:16 Narcan IV Q2M PRN Opioid Reversal Ondansetron HCl 4 mg 09/15/17 15:16 Zofran IVP Q8HR PRN Nausea And Vomiting Pantoprazole Sodium 40 mg 09/15/17 13:15 09/17/17 06:16 Protonix PO 40 mg [id number] SARA Administration Intake and Output 09/16/17 09/17/17 09/17/17 22:59 06:59 14:59 Intake Total 236 240 Balance 236 240 Intake: Oral 236 240 Other: Voiding Method Toilet Toilet Toilet Urinal Urinal Urinal # Voids 1 Weight 73.9 kg 09/14/17 19:00 09/14/17 19:00 EKG Interpretations (text) Sinus rhythm Assessment and Plan (1) Ischemic heart disease Current Visit: Yes Status: Acute Code(s): I25.9 - CHRONIC ISCHEMIC HEART DISEASE, UNSPECIFIED SNOMED Code(s): 701559573 (2) Cerebrovascular accident Current Visit: Yes Status: Acute Code(s): I63.9 - CEREBRAL INFARCTION, UNSPECIFIED SNOMED Code(s): 792035666 (3) Paroxysmal atrial fibrillation Current Visit: Yes Status: Acute Code(s): I48.0 - PAROXYSMAL ATRIAL FIBRILLATION SNOMED Code(s): 322545423 Plan: We will proceed with a HEIDY tomorrow. Patient should be considered for long- term anticoagulation. proceed with further neurology workup
--- NOTE | 2017-09-17 18:30 | EEG ---
ELECTROENCEPHALOGRAM REPORT DATE OF SERVICE: 09/16/2017. REASON FOR TESTING: Stroke. DESCRIPTION OF THE PROCEDURE: This EEG was performed using a 21 channel digital electroencephalograph, following international 10-20 system. DESCRIPTION OF THE RECORDING: From the beginning of the tracing, and with patient's eyes closed, the background rhythm was mostly consisting of 9-10 Hz alpha frequency in the posterior occipital leads. No obvious asymmetry is seen. Photic stimulation was performed with a minimal driving response seen. No pathological waves were elicited. Hyperventilation was not performed. The patient does reach stage II of sleep during the tracing and occasional sleep spindles are seen. No epileptiform discharges were seen. More minimal movement and muscle artifacts are seen later in the tracing. His EKG lead showed a regular rate and rhythm. INTERPRETATION: This asleep and awake EEG can be considered within normal limits. There was no asymmetry seen. No epileptiform discharges were noticed. The absence of epileptiform discharges does not rule out the diagnosis of epilepsy, therefore clinical correlation is recommended. MMJIMBO / CLAIREN: [id number] /
--- NOTE | 2017-09-17 19:32 | P.PN ---
Subjective Progress Note Date: 09/17/17 Patient is a pleasant 77-year-old male who is being followed by the neurology service for stroke. Patient had episode of confusion and disorganization. Patient also states he was having some visual difficulty as well. Patient states he could see the letters on the page but he could not read words. He denies any lateralizing weakness. He denies any speech difficulty. Patient came to [facility] for evaluation. Computed tomography scan of the brain showed posterior left parietal lobe nonhemorrhagic infarction in the territory of the left MCA. MRI was done which showed acute cortical infarct involving region of the posterior left parietal lobe. Patient is on Plavix 75 mg daily. Patient states he is getting better however he is not yet back to baseline. At the time of my evaluation, patient' s resting comfortably in bed and appears to be in no acute distress. 09/17/2017 Patient is a pleasant 77-year-old male is being followed by the neurology service for stroke. Patient's states he is doing much better today. He feels almost back to baseline. Patient is to have a HEIDY done tomorrow. At the time of my evaluation, patient's resting comfortably in bed and appears to be in no acute distress. Objective - Vital Signs Vital signs: Vital Signs Temp 97.2 F L 09/17/17 07:54 Pulse 66 09/17/17 16:00 Resp 16 09/17/17 16:00 BP 108/68 09/17/17 16:00 Pulse Ox 97 09/17/17 16:00 Intake & Output 09/17/17 09/17/17 09/18/17 06:59 18:59 06:59 Intake Total 716 Balance 716 Weight 73.9 kg Intake: Oral 716 Other: Voiding Method Toilet Toilet Urinal Urinal # Voids 1 1 - Exam PHYSICAL EXAM: GENERAL APPEARANCE: Patient is a well-developed, male who appears to be in no acute distress. HEENT: Normocephalic, atraumatic, no facial asymmetry is seen. Neck is supple with no masses felt. CARDIOVASCULAR: Regular rate and rhythm. ABDOMEN: Nontender, nondistended. EXTREMITIES: Show no edema or clubbing. NEUROLOGICAL EXAM: Patient is awake, alert, and oriented 3. Speech and language are normal. Patient has a right visual field cut. Strength is full in all 4 extremities. Sensory exam to light touch is normal in all 4 extremities. No facial asymmetry seen on cranial nerve testing. No tremors or seizure-like activity noted. - Labs CBC & Chem 7: 09/14/17 19:00 09/14/17 19:00 Assessment and Plan Plan: Impression: 1. CVA/left posterior parietal lobe 2. CAD/history of stent 3. Hypertension 4. Hyperlipidemia 5. Expressive aphasia, resolved 6. Right visual field cut Recommendation: It does appear patient had a cerebrovascular accident with episode of confusion and disorganization. Patient has right visual field cut. Symptoms are resolving. As mentioned above, CT of the brain showed posterior left parietal lobe 3 cm nonhemorrhagic infarction, in the vascular territory of the left MCA distribution. CTA of the head and neck showed no significant stenosis or abnormality. EKG showed sinus rhythm. MRI showed acute cortical infarct involving posterior left parietal lobe. Continue Plavix 75 mg by mouth daily. EEG was normal. His fasting lipid panel was normal and serum homocysteine level was normal. Patient is stable from a neurological standpoint for discharge tomorrow if HEIDY is without thrombus. I will continue to follow with you. Further recommendations to follow. I performed an examination of the patient and discussed the management with the NEEDLE LOOM TENDER. I have reviewed the NEEDLE LOOM TENDER notes and agree with the findings and plan of care.
--- NOTE | 2017-09-17 20:23 | PN ---
PROGRESS NOTE DATE OF SERVICE: September 17, 2017 INTERVAL HISTORY: The patient presented with acute parietal stroke affecting the visual alfred slightly greatly improved. Has a history of atrial fibrillation. Patient did not want to take his Coumadin. The patient awaiting a HEIDY. Patient able to read his book. REVIEW OF SYSTEMS: Done for constitutional, cardiovascular, GI, pulmonary, relevant findings as above. CURRENT MEDICATIONS: Reviewed that include Plavix and Lipitor. PHYSICAL EXAMINATION: On examination, afebrile, pulse 116, blood pressure 108/70, pulse ox 98% on room air. General appearance: Sitting up, comfortable. Eyes: Pupils are equal. Conjunctivae normal. HEENT: External appearance of nose and ears normal. Oral cavity normal. Neck: JVD not raised. Mass not palpable. Respiratory effort: Lungs are clear. Cardiovascular 1st and 2nd sounds normal. No edema. ABDOMEN: Soft, nontender. Liver and spleen not palpable. Psychiatry: Alert and oriented times three. Mood and affect normal. Neurological much improved overall. INVESTIGATIONS: No blood work from today. ASSESSMENT: 1. Acute stroke ischemic in the left parietal area of the left middle cerebral artery causing homonymous hemianopsia which actually is improved and speech is also improved. 2. Paroxysmal atrial fibrillation currently in sinus rhythm. This could have been an embolic stroke. 3. Gastroesophageal reflux disease. 4. Essential hypertension. 5. Hyperlipidemia. 6. Coronary artery disease with prior history of stent. 7. Chronic kidney disease stage 3 probably from nephrosclerosis. 8. Rule out cardiac thrombus high probability in setting of atrial fibrillation. PLAN: Await HEIDY. Other medication and treatment plan is to continue. Care was discussed with the patient. MMODL / IJN: [id number] /
[2017-09-17] MEDS: ATENOLOL 25 MG TAB PO SCH (21:03)
[2017-09-18] MEDS: PANTOPRAZOLE 40 MG TABLET PO SCH (06:35)
[2017-09-18 07:42] LABS: Calcium 9.2 mg/dL (8.4-10.2); Potassium 4.2 mmol/L (3.5-5.1)
[2017-09-18] MEDS ORDERED: MIDAZOLAM 2 MG/2 ML VIAL ONE (08:34)
[2017-09-18] MEDS ORDERED: fentaNYL (PF) 50 MCG/ML 2 ML AMP ONE (08:34)
[2017-09-18] MEDS ORDERED: IV FLUID CONTINUATION 1,000 ML IV ONE (08:50)
[2017-09-18] MEDS ORDERED: BENZOCAINE SPRAY 1 CAN MUCOUS MEM ONE (09:00)
[2017-09-18] MEDS ORDERED: fentaNYL (PF) 50 MCG/ML 2 ML AMP IV ONE (09:10)
[2017-09-18] MEDS ORDERED: MIDAZOLAM 2 MG/2 ML VIAL IV ONE (09:10)
--- NOTE | 2017-09-18 09:40 | P.TEE ---
Indications for Procedure(s): CVA Date of Procedure: 09/18/17 Preoperative Diagnosis: CVA, rule out cardiac source of emboli Postoperative Diagnosis: No evidence of intracavitary thrombus. No PFO Procedure(s) Performed: HEIDY Description of Procedure(s): INDICATION: This 77-year-old gentleman with history of ischemic heart disease and possible atrial fibrillation, is admitted to the hospital with an episode of CVA with visual defect and confusional state. Patient is advised to have a HEIDY examination to rule out any cardiac source of emboli. CONSENT: Consent was obtained verbally from patient. PROCEDURE: Patient was brought to the lab in a fasting state. He was prepped and draped in the usual fashion. The throat was sprayed with Cetacaine. A lubricated Omni probe was introduced into the oropharynx and was advanced into the esophagus. Multiple views were obtained. Patient tolerated the procedure well. Color and pulse wave Doppler was done. Saline contrast bubble injection was also performed. FINDINGS: The aortic valve is tricuspid and function normally. The aortic root appeared to be mildly dilated. The mitral valve appeared within normal with mild mitral regurgitation. The tricuspid valve appeared within normal. The interatrial septum showed excessive motion. There doesn't seem to be any spontaneous flow across the interatrial septum. Saline contrast bubble injection did not reveal any shunting across the septum. The left atrial appenda is large but free of any clot. Left ventricular function appeared within normal. There is mild to moderate plaque in the aorta. IMPRESSION:#1. No PFO #2. No clot in the left atrial appendage. #3. Normal valvular function with mild mitral regurgitation. #4. Preserved LV function. #5. Mild plaque in the aorta.
[2017-09-18] MEDS ORDERED: SODIUM CHLORIDE 0.9% 1,000 ML IV SCH (09:45)
[2017-09-18] MEDS: CLOPIDOGREL 75 MG TAB PO SCH (10:27)
[2017-09-18] MEDS: ATORVASTATIN 40 MG TAB PO SCH (10:27)
[2017-09-18] MEDS: FERROUS SULFATE 325 MG TAB PO SCH (10:28)
[2017-09-18] MEDS: CHOLECALCIFEROL 1,000 UNIT TAB PO SCH (10:28)
--- NOTE | 2017-09-18 16:45 | P.PN ---
Subjective Progress Note Date: 09/18/17 Patient is a pleasant 77-year-old male who is being followed by the neurology service for stroke. Patient had episode of confusion and disorganization. Patient also states he was having some visual difficulty as well. Patient states he could see the letters on the page but he could not read words. He denies any lateralizing weakness. He denies any speech difficulty. Patient came to [facility] for evaluation. Computed tomography scan of the brain showed posterior left parietal lobe nonhemorrhagic infarction in the territory of the left MCA. MRI was done which showed acute cortical infarct involving region of the posterior left parietal lobe. Patient is on Plavix 75 mg daily. Patient states he is getting better however he is not yet back to baseline. At the time of my evaluation, patient' s resting comfortably in bed and appears to be in no acute distress. 09/17/2017 Patient is a pleasant 77-year-old male is being followed by the neurology service for stroke. Patient's states he is doing much better today. He feels almost back to baseline. Patient is to have a HEIDY done tomorrow. At the time of my evaluation, patient's resting comfortably in bed and appears to be in no acute distress. 09/18/2017 Patient is a pleasant 77-year-old male is being followed by the neurology service for stroke. Patient is doing much better today. Patient states he is active baseline. Patient is able to read to states he did prior to admission. Patient had a HEIDY done today with no evidence of thrombus. However, cardiology with the patient to stay another day or so for anticoagulation due to atrial fibrillation. At the time of my evaluation, patient is resting comfortably in bed in today with family. Patient appears to be in no acute distress. Objective - Vital Signs Vital signs: Vital Signs Temp 96.2 F L 09/18/17 11:15 Pulse 55 L 09/18/17 11:26 Resp 16 09/18/17 11:26 BP 101/55 09/18/17 11:15 Pulse Ox 98 09/18/17 11:15 Intake & Output 09/17/17 09/18/17 09/18/17 18:59 06:59 18:59 Intake Total 716 300 Output Total 300 Balance 716 0 Weight 73.3 kg Intake: IV 100 Oral 716 200 Output: Urine 300 Other: Voiding Method Toilet Toilet Toilet Urinal Urinal # Voids 1 1 1 - Exam PHYSICAL EXAM: GENERAL APPEARANCE: Patient is a well-developed, male who appears to be in no acute distress. HEENT: Normocephalic, atraumatic, no facial asymmetry is seen. Neck is supple with no masses felt. CARDIOVASCULAR: Regular rate and rhythm. ABDOMEN: Nontender, nondistended. EXTREMITIES: Show no edema or clubbing. NEUROLOGICAL EXAM: Patient is awake, alert, and oriented 3. Speech and language are normal. Patient right visual field cut is almost resolved.. Patient's alexia has resolved. Strength is full in all 4 extremities. Sensory exam to light touch is normal in all 4 extremities. No facial asymmetry seen on cranial nerve testing. No tremors or seizure-like activity noted. - Labs CBC & Chem 7: 09/14/17 19:00 09/18/17 06:59 Labs: Abnormal Lab Results - Last 24 Hours (Table) 09/18/17 Range/Units 06:59 Creatinine 1.40 H (0.66-1.25) mg/dL Assessment and Plan Plan: Impression: 1. CVA/left posterior parietal lobe 2. CAD/history of stent 3. Hypertension 4. Hyperlipidemia 5. Expressive aphasia, resolved 6. Right visual field cut Recommendation: It does appear patient had a cerebrovascular accident with episode of confusion and disorganization. Patient's right visual field cut has almost resolved. As mentioned above, CT of the brain showed posterior left parietal lobe 3 cm nonhemorrhagic infarction, in the vascular territory of the left MCA distribution. CTA of the head and neck showed no significant stenosis or abnormality. EKG showed sinus rhythm. MRI showed acute cortical infarct involving posterior left parietal lobe. Continue Plavix 75 mg by mouth daily. EEG was normal. His fasting lipid panel was normal and serum homocysteine level was normal. Patient is stable from a neurological standpoint for discharge tomorrow if HEIDY is without thrombus. I will continue to follow with you on an as-needed basis. Feel free to call with any questions or concerns. I performed an examination of the patient and discussed the management with the SCHOOL CROSSING GUARD. I have reviewed the SCHOOL CROSSING GUARD notes and agree with the findings and plan of care.
[2017-09-18] MEDS: ATENOLOL 25 MG TAB PO SCH (21:30)
[2017-09-18] MEDS: APIXABAN 5 MG TAB PO SCH (21:30)
--- NOTE | 2017-09-19 00:21 | PN ---
PROGRESS NOTE DATE OF SERVICE: 09/18/2017 PRESENTING COMPLAINT: This is a patient who presented with acute parietal stroke affecting visual field, much improved. The patient has history of atrial fibrillation. Patient had not wanted take anticoagulation in the past. Did have a HEIDY today that came back negative. The patient's vision is nearly back to normal. REVIEW OF SYSTEMS: Done for constitutional, cardiovascular, GI, pulmonary; relevant findings as above. CURRENT MEDICATIONS: Reviewed. EXAMINATION: Temperature 96.2, pulse 55, respiration 16, blood pressure 111/55, pulse ox 98% on room air. GENERAL APPEARANCE: Sitting up in bed, comfortable. EYES: Pupils equal. Conjunctivae normal. HEENT: External appearance of nose and ears normal. Oral cavity normal. NECK: JVD not raised. Mass not palpable. Respiratory effort normal. Lungs are clear. CARDIOVASCULAR: First and seconds sounds normal. No edema. ABDOMEN: Soft, nontender. Liver and spleen not palpable. PSYCHIATRY: Alert and oriented x3. Mood and affect normal. NEUROLOGICAL: No more focal deficits. INVESTIGATIONS: Potassium 4.2, BUN 18, creatinine 1.4. HEIDY negative. ASSESSMENT: 1. Acute stroke in the left parietal area of the left middle cerebral artery, likely ischemic, embolic cannot be ruled out causing hemianopsia, which actually is improved. The patient's speech is also affected, now which is improved. 2. Paroxysmal atrial fibrillation with a HEIDY negative for any thrombus. 3. Gastroesophageal reflux disease. 4. Essential hypertension. 5. Hyperlipidemia. 6. Coronary artery disease, prior history of stent. 7. Chronic kidney disease stage 3, probably from nephrosclerosis. PLAN: The patient is doing medically well. When I spoke to Niki from [employer] TECHNICIAN/Cardiology, she is going to discuss with the patient about anticoagulation, discharge pending decision and medication per Cardiology. MMODL / IJN: [id number] /
[2017-09-19] MEDS: PANTOPRAZOLE 40 MG TABLET PO SCH (06:37)
[2017-09-19 07:50] LABS: Potassium 4.3 mmol/L (3.5-5.1)
[2017-09-19] MEDS: CLOPIDOGREL 75 MG TAB PO SCH (08:47)
[2017-09-19] MEDS: APIXABAN 5 MG TAB PO SCH (08:47)
[2017-09-19] MEDS: ATORVASTATIN 40 MG TAB PO SCH (08:47)
[2017-09-19 10:45] VITALS: RESP 18
[2017-09-19] MEDS: CHOLECALCIFEROL 1,000 UNIT TAB PO SCH (12:19)
[2017-09-19] MEDS: FERROUS SULFATE 325 MG TAB PO SCH (12:19)
[2017-09-19 12:46] VITALS: BP 128/59; PULSE 54; TEMP 97.6
--- NOTE | 2017-09-19 14:55 | P.PN ---
Subjective Progress Note Date: 09/19/17 This is a 77-year-old gentleman with history of ischemic heart disease and prior stent placement, history of cardiac arrhythmia in the form of PACs) atrial fibrillation who has been advised to be on anticoagulation in the past but has refused. He presented to the hospital with symptoms suggesting a CVA. Patient underwent a HEIDY yesterday by Dr. Jordan that did not reveal any evidence of a PFO, no clot in the left atrial appendage, normal valvular function with mild mitral regurg, preserved LV function and mild plaque in the aorta. Patient was noted on review of prior records that he does have paroxysmal atrial fibrillation and was advised strongly to take Eliquis. He has agreed. He has coverage for it. Patient was seen and examined this morning , feeling well overall, eager to be discharged. Hemodynamically he is stable. Objective - Vital Signs Vital signs: Vital Signs Temp 97.6 F 09/19/17 11:35 Pulse 54 L 09/19/17 11:35 Resp 18 09/19/17 11:35 BP 128/59 09/19/17 11:35 Pulse Ox 94 L 09/19/17 11:35 Intake & Output 09/18/17 09/19/17 09/19/17 18:59 06:59 18:59 Intake Total 300 462 Output Total 300 800 Balance 0 -338 Weight 73.5 kg Intake: IV 100 Oral 200 462 Output: Urine 300 800 Other: Voiding Method Toilet Toilet # Voids 1 1 - Exam PHYSICAL EXAMINATION: HEENT: Head is atraumatic, normocephalic. Pupils equal, round. Neck is supple. There is no elevated jugular venous pressure. HEART EXAMINATION: Heart S1, S2 normal. No murmur or gallop heard. CHEST EXAMINATION: Lungs are clear to auscultation and precussion. No chest wall tenderness is noted on palpation or with deep breathing. ABDOMEN: Soft, nontender. Bowel sounds are heard. No organomegaly noted. EXTREMITIES: 2+ peripheral pulses with no evidence of peripheral edema and no calf tenderness noted. NEUROLOGIC patient is awake, alert and oriented -3. . - Labs CBC & Chem 7: 09/14/17 19:00 09/19/17 06:37 Labs: Abnormal Lab Results - Last 24 Hours (Table) 09/19/17 Range/Units 06:37 BUN 21 H (9-20) mg/dL Creatinine 1.60 H (0.66-1.25) mg/dL Assessment and Plan Plan: Assessment and plan #1 acute CVA #2 paroxysmal atrial fibrillation #3 hypertension #4 hyperlipidemia #5 coronary artery disease with prior stent #6 stage III chronic kidney disease Plan Patient may be able to be discharged home today from cardiology's perspective, he will be discharged home on Eliquis 5 mg one tablet by mouth twice a day. Follow-up appointment will be made with Dr. Issa in the office post discharge. DNP note has been reviewed, I agree with a documented findings and plan of care. Patient was seen and examined.
--- NOTE | 2017-09-20 06:19 | DS ---
DISCHARGE SUMMARY DATE OF ADMISSION: September 14, 2017. DATE OF DISCHARGE: September 19, 2017. FINAL DIAGNOSES: 1. Acute stroke in the left parietal area of the left middle cerebral artery, possibly ischemic or embolic in a right-handed patient affecting both the vision and the speech. 2. Paroxysmal atrial fibrillation with HEIDY negative for any thrombus. 3. Gastroesophageal reflux disease. 4. Essential hypertension. 5. Hyperlipidemia. 6. Coronary artery disease prior history of stent. 7. Chronic kidney disease stage 3 from nephrosclerosis. HOSPITAL COURSE: This patient presented with change in his speech and vision was affected. The patient could not read. Subsequently patient vision did come back. Nearly back to normal. Patient was able to read and speech has recovered. The patient did have a HEIDY negative for any thrombus history of atrial fibrillation. EEG did not show any seizure activity. MRI of the brain showed a cortical infarct in the left parietal lobe. 2D echocardiogram showed EF of 55-60%. CONSULTATION: Dr. Christianson from neurology, Dr. Jordan from Cardiology. Today the nurse Gerri called me that she spoke with Dr. Christianson and he wanted the Plavix to be discontinued. The patient is to remain on Eliquis. On examination no neuro deficits. Lungs are clear. The patient has been in sinus rhythm now. DISCHARGE MEDICATIONS: 1. Tenormin 25 mg q.h.s. 2. Vitamin D3 2000 units p.o. daily. 3. Prevacid 30 mg p.o. daily. 4. Lipitor 40 mg daily. 5. Eliquis 5 mg p.o. b.i.d. 6. Plavix discontinued by Dr. Christianson. FOLLOWUP: Follow up with Dr. Issa on September 28, 2017, Marisol Diop on 09/22/17, follow up with Dr. Christianson in 1 week. MMODL / IJN: [id number] /
== END 2017-09-19 14:27 | disposition home or self-care (01) | DRG 66 ==
LOC: EC 18:46 → 6SEL 21:44
PROVIDERS: ADMIT Hospitalist; ATTEND Hospitalist
PROC: B24BZZ4 Ultrasonography of Heart with Aorta, Transesophageal (ICD-10-PCS; principal; 2017-09-18 09:00)
DX: I63.9 Cerebral infarction, unspecified (principal); R47.01 Aphasia; R29.701 NIHSS score 1; K21.9 Gastro-esophageal reflux disease without esophagitis; E78.5 Hyperlipidemia, unspecified; I48.0 Paroxysmal atrial fibrillation; H53.461 Homonymous bilateral field defects, right side; I25.10 Atherosclerotic heart disease of native coronary artery without angina pectoris; I12.9 Hypertensive chronic kidney disease with stage 1 through stage 4 chronic kidney disease, or unspecified chronic kidney disease; N18.3 Chronic kidney disease, stage 3 (moderate); I49.1 Atrial premature depolarization; Z95.5 Presence of coronary angioplasty implant and graft; Z79.82 Long term (current) use of aspirin; Z79.899 Other long term (current) drug therapy; Z88.0 Allergy status to penicillin; Z87.891 Personal history of nicotine dependence; Z82.49 Family history of ischemic heart disease and other diseases of the circulatory system; Z80.0 Family history of malignant neoplasm of digestive organs
CPT/HCPCS: 36415; 70450; 70496; 70498; 70551; 71046; 80048; 80053; 80061; 82550; 82553; 83090; 84484; 85025; 85610; 85730; 93005; 93306; 93312; 93320; 93325; 94760; 95819; 99291

== ENCOUNTER 2018-12-23 09:24 | Observation (INO) | payer MEDICARE ==
--- NOTE | 2018-12-23 09:34 | ED ---
General Adult HPI - General Stated complaint: A-Fib Time Seen by Provider: 12/23/18 09:24 Source: RN notes reviewed - History of Present Illness Initial comments: This is a 78-year-old male who presents emergency department with past medical history significant for atrial fibrillation. Patient states he's been in atrial fibrillation for the last day and a half and today he walked up the steps was extremely short of breath. Patient states is not normal for him. Patient states she was hoping that it would resolve on its own but it did not so decided come to the emergency department. Patient denied any chest pain at any time. Patient states she didn't feel as though his heart was racing fast. Patient states he was just short of breath with exertion. Patient denies any symptoms currently while in the emergency department. Patient denies any abdominal pain. Patient denies any nausea vomiting. Patient denies any recent fever chills or cough. Patient denies any lightheadedness or dizziness. Patient denies a he adache or any numbness or weakness. - Related Data Home Medications Medication Instructions Recorded Confirmed Atenolol [Tenormin] 25 mg PO HS 09/14/17 12/23/18 Cholecalciferol (Vitamin D3) 2,000 unit PO DAILY 09/14/17 12/23/18 [Vitamin D3] Ferrous Sulfate [Iron (65 MG 325 mg PO DAILY 09/14/17 12/23/18 Elemental)] Lansoprazole [Prevacid] 30 mg PO DAILY 09/14/17 12/23/18 Previous Rx's Medication Instructions Recorded Atorvastatin [Lipitor] 40 mg PO DAILY #30 tab 09/18/17 Apixaban [Eliquis] 5 mg PO BID #60 tab 09/19/17 Allergies Allergy/AdvReac Type Severity Reaction Status Date / Time penicillin G AdvReac Unknown Verified 12/23/18 09:41 [From Bicillin L-A] Review of Systems ROS Statement: Those systems with pertinent positive or pertinent negative responses have been documented in the HPI. ROS Other: All systems not noted in ROS Statement are negative. Past Medical History Past Medical History: Atrial Fibrillation, GERD/Reflux, Hyperlipidemia, Hype rtension History of Any Multi-Drug Resistant Organisms: None Reported Past Surgical History: Heart Catheterization With Stent Date of Last Stent Placement:: 2008 Past Psychological History: No Psychological Hx Reported Smoking Status: Former smoker Past Alcohol Use History: Daily, Heavy Past Drug Use History: None Reported - Past Family History Father Family Medical History: Myocardial Infarction ([place]) Mother Family Medical History: Cancer Additional Family Medical History / Comment(s): colon cancer General Exam - General Exam Comments Initial Comments: GENERAL: Patient is well-developed and well-nourished. Patient is nontoxic and well-h ydrated and is in no acute distress. ENT: Neck is soft and supple. No significant lymphadenopathy is noted. Oropharynx is clear. Moist mucous membranes. Neck has full range of motion without elic iting any pain. EYES: The sclera were anicteric and conjunctiva were pink and moist. Extraocular movements were intact and pupils were equal round and reactive to light. Eyelids were unremarkable. PULMONARY: Unlabored respirations. Good breath sounds bilaterally. No audible rales rhonchi or wheezing was noted. CARDIOVASCULAR: Patient has a regular rate and rhythm. Patient's heart rate is not above 100. ABDOMEN: Soft and nontender with normal bowel sounds. No palpable organomegaly was noted. There is no palpable pulsatile mass. SKIN: Skin is clear with no lesions or rashes and otherwise unremarkable. NEUROLOGIC: Patient is alert and oriented x3. Cranial nerves II through XII are grossly intact. Motor and sensory are also intact. Normal speech, volume and content. Symmetrical smile. MUSCULOSKELETAL: Normal extremities with adequate strength and full range of motion. No lower extremity swelling or edema. No calf tenderness. LYMPHATICS: No significant lymphadenopathy is noted PSYCHIATRIC: Normal psychiatric evaluation. Course Vital Signs 12/23/18 12/23/18 12/23/18 09:29 10:00 10:30 Temperature 97.8 F Pulse Rate 71 75 89 Respiratory 18 18 18 Rate Blood Pressure 123/85 123/85 104/77 O2 Sat by Pulse 100 99 98 Oximetry 12/23/18 11:00 Temperature Pulse Rate 86 Respiratory 12 Rate Blood Pressure 101/60 O2 Sat by Pulse 98 Oximetry Medical Decision Making - Medical Decision Making EKG shows atrial fibrillation at 91 bpm QRS is 86 QT interval 372 QTC is 457. Patient's EKG shows no ST segment elevation or depression or T wave abnormalities are noted. Chest x-ray shows no acute abnormality. Patient states he was short of breath while standing for his x-rays which is very unusual for him. Patient states th is normally would not be a problem at all. I spoke with Dr. Carson he wanted the patient admitted overnight for observation I wrote admitting orders I consulted cardiology - Lab Data Result diagrams: 12/23/18 09:50 12/23/18 09:50 Lab Results 12/23/18 12/23/18 12/23/18 Range/Units 09:50 09:50 09:50 WBC 6.0 (3.8-10.6) k/uL RBC 4.72 (4.30-5.90) m/uL Hgb 15.3 (13.0-17.5) gm/dL Hct 44.8 (39.0-53.0) % MCV 95.0 (80.0-100.0) fL MCH 32.4 (25.0-35.0) pg MCHC 34.1 (31.0-37.0) g/dL RDW 12.7 (11.5-15.5) % Plt Count 185 (150-450) k/uL Neutrophils % 50 % Lymphocytes % 32 % Monocytes % 9 % Eosinophils % 3 % Basophils % 1 % Neutrophils # 3.0 (1.3-7.7) k/uL Lymphocytes # 1.9 (1.0-4.8) k/uL Monocytes # 0.6 (0-1.0) k/uL Eosinophils # 0.2 (0-0.7) k/uL Basophils # 0.1 (0-0.2) k/uL PT 10.0 (9.0-12.0) sec INR 0.9 (<1.2) APTT 23.9 (22.0-30.0) sec D-Dimer 0.26 (<0.60) mg/L FEU Sodium 142 (137-145) mmol/L Potassium 4.8 (3.5-5.1) mmol/L Chloride 106 (98-107) mmol/L Carbon Dioxide 27 (22-30) mmol/L Anion Gap 9 mmol/L BUN 25 H (9-20) mg/dL Creatinine 1.41 H (0.66-1.25) mg/dL Est GFR (CKD-EPI)AfAm 56 (>60 ml/min/1.73 sqM) Est GFR (CKD-EPI)NonAf 48 (>60 ml/min/1.73 sqM) Glucose 81 (74-99) mg/dL Calcium 9.1 (8.4-10.2) mg/dL Magnesium 2.0 (1.6-2.3) mg/dL Total Bilirubin 0.7 (0.2-1.3) mg/dL AST 28 (17-59) U/L ALT 33 (21-72) U/L Alkaline Phosphatase 66 (38-126) U/L Troponin I (0.000-0.034) ng/mL NT-Pro-B Natriuret Pep pg/mL Total Protein 6.6 (6.3-8.2) g/dL Albumin 3.9 (3.5-5.0) g/dL 12/23/18 12/23/18 Range/Units 09:50 09:50 WBC (3.8-10.6) k/uL RBC (4.30-5.90) m/uL Hgb (13.0-17.5) gm/dL Hct (39.0-53.0) % MCV (80.0-100.0) fL MCH (25.0-35.0) pg MCHC (31.0-37.0) g/dL RDW (11.5-15.5) % Plt Count (150-450) k/uL Neutrophils % % Lymphocytes % % Monocytes % % Eosinophils % % Basophils % % Neutrophils # (1.3-7.7) k/uL Lymphocytes # (1.0-4.8) k/uL Monocytes # (0-1.0) k/uL Eosinophils # (0-0.7) k/uL Basophils # (0-0.2) k/uL PT (9.0-12.0) sec INR (<1.2) APTT (22.0-30.0) sec D-Dimer (<0.60) mg/L FEU Sodium (137-145) mmol/L Potassium (3.5-5.1) mmol/L Chloride (98-107) mmol/L Carbon Dioxide (22-30) mmol/L Anion Gap mmol/L BUN (9-20) mg/dL Creatinine (0.66-1.25) mg/dL Est GFR (CKD-EPI)AfAm (>60 ml/min/1.73 sqM) Est GFR (CKD-EPI)NonAf (>60 ml/min/1.73 sqM) Glucose (74-99) mg/dL Calcium (8.4-10.2) mg/dL Magnesium (1.6-2.3) mg/dL Total Bilirubin (0.2-1.3) mg/dL AST (17-59) U/L ALT (21-72) U/L Alkaline Phosphatase (38-126) U/L Troponin I <0.012 (0.000-0.034) ng/mL NT-Pro-B Natriuret Pep 3050 pg/mL Total Protein (6.3-8.2) g/dL Albumin (3.5-5.0) g/dL Disposition Clinical Impression: Atrial fibrillation, Dyspnea Disposition: ADMITTED IP TO THIS HOSP Referrals: Marisol Diop DO [Primary Care Provider] - 1-2 days Time of Disposition: 11:31
[2018-12-23 10:06] LABS: Basophils # (A) 0.1 k/uL (0-0.2); Basophils % (A) 1 %; Eosinophils # (A) 0.2 k/uL (0-0.7); Eosinophils % (A) 3 %; HCT 44.8 % (39.0-53.0); HGB 15.3 gm/dL (13.0-17.5); Lymphocytes # (A) 1.9 k/uL (1.0-4.8); Lymphocytes % (A) 32 %; MCH 32.4 pg (25.0-35.0); MCHC 34.1 g/dL (31.0-37.0); Mean Platelet Volume 7.5; Monocytes # (A) 0.6 k/uL (0-1.0); Monocytes % (A) 9 %; Neutrophils % (A) 50 %; Platelet Count 185 k/uL (150-450); RBC 4.72 m/uL (4.30-5.90); RDW 12.7 % (11.5-15.5)
[2018-12-23 10:15] LABS: Albumin 3.9 g/dL (3.5-5.0); Calcium 9.1 mg/dL (8.4-10.2); Potassium 4.8 mmol/L (3.5-5.1); Total Bilirubin 0.7 mg/dL (0.2-1.3); Total Protein 6.6 g/dL (6.3-8.2)
--- NOTE | 2018-12-23 10:20 | XR ---
EXAMINATION TYPE: XR chest 2V DATE OF EXAM: 12/23/2018 COMPARISON: Chest x-ray September 14, 2017 HISTORY: History of cardiac stents with difficulty breathing. TECHNIQUE: Frontal and lateral views of the chest are obtained. FINDINGS: There is background chronic emphysematous change without suspicious focal air space opacit y, pleural effusion, or pneumothorax seen. The cardiac silhouette size remains within normal limits. Overlying EKG leads are present. The osseous structures are intact. IMPRESSION: Chronic emphysematous change without acute pulmonary process.
[2018-12-23 10:23] LABS: D-Dimer 0.26 mg/L FEU (<0.60); INR 0.9 (<1.2); Partial Thromboplastin Time 23.9 sec (22.0-30.0)
[2018-12-23] MEDS: AMIODARONE 200 MG TAB PO SCH ×2 (12:55→19:56)
[2018-12-23 13:13] VITALS: BMI 22.9
[2018-12-23] MEDS: APIXABAN 5 MG TAB PO SCH (19:56)
[2018-12-23] MEDS ORDERED: ATENOLOL 25 MG TAB PO SCH (21:00)
--- NOTE | 2018-12-23 22:27 | CONS ---
CONSULTATION Mr. Burns is a 78-year-old male with known history of coronary artery disease status post percutaneous revascularization, history of paroxysmal atrial fibrillation, who presented to the emergency room with symptoms of progressive dyspnea that started yesterday with dizziness and fatigue. He noted that he was in atrial fibrillation. He denies any chest pain. He denies any syncope. No PND. No orthopnea. No peripheral edema. He had some episode of palpitation on and off in the past but not persistent. He has been anticoagulated. His coronary risk factors are remarkable for hyperlipidemia. He is nonsmoker for a long time, nondiabetic. MEDICATION: Medications at home include: Eliquis 5 mg twice a day, atenolol 25 mg daily, Lipitor 40 mg daily, iron, vitamin D, and he is taking the Prevacid as needed. REVIEW OF SYSTEMS: RESPIRATORY system: He had dyspnea on exertion as noted, but no wheezing. No cough. GI system: No recent GI bleed. No peptic ulcer disease. system: No dysuria or hematuria. Nervous system: No history of seizure. He had a prior history of neurological event that occurred in August of 2017 with expressive aphasia. PHYSICAL EXAMINATION: He is a 78-year-old male, alert, oriented, in no apparent distress. Blood pressure 101/70 with a heart rate in the 90s. HEAD: Normocephalic. EYES: Sclerae anicteric. NECK: Good upstroke. No bruit. No jugular venous distention. LUNGS: Clear to auscultation. HEART: Irregularly, irregular. S1, S2. No S3. No rub. ABDOMEN: Soft, nontender. Positive bowel sounds. No megaly. EXTREMITIES: No edema. Intact distal pulses. LAB DATA: BUN and creatinine 25 and 1.4. Troponin less than 0.012. NT proBNP of 3050. Potassium 4.8, hemoglobin of 15.3. Chest x-ray revealed no acute infiltrate. EKG reveals atrial fibrillation with normal axis and intervals, nonspecific ST-T wave changes. IMPRESSION: 1. Atrial fibrillation, recurrent, paroxysmal in the past with anticoagulated, symptomatic with symptoms of dyspnea and fatigue. 2. History of coronary artery disease stable. 3. History of hyperlipidemia. 4. Prior history of alcohol. Patient has stopped drinking almost stopped drinking completely about 15 months ago. RECOMMENDATION: From the cardiac standpoint, we will resume the beta chan and the anticoagulation. The mild elevation of NT proBNP is related to the atrial fibrillation. I see no clinical finding on examination of CHF. I will add to his regimen amiodarone 400 mg twice a day. We will obtain echocardiogram with Doppler. If he continues to be in atrial fibrillation, he may be a candidate for cardioversion. We will follow his renal function and if needed, he will receive a dose of diuretics depending on his symptoms. Thank you for this consult. We will follow with you. RUEL / IJN: [id number] /
[2018-12-23 23:24] VITALS: RESP 16
--- NOTE | 2018-12-24 00:43 | P.HPIM ---
History of Present Illness H&P Date: 12/23/18 Chief Complaint: Dizziness Patient is a 78-year-old male with a known history of paroxysmal atrial fibrillation for the past 10 years, on anticoagulation, GERD and hypertension as well as history of cardiac catheter patient stent placement CAD and history of alcohol abuse came to ER with complaints of dizziness. Patient has been having recurrent atrial fibrillation at home. Patient was having dizziness and shortness of breath with going to the bathroom as well. Denied any palpitations. No complaints of chest pain. No nausea vomiting or abdominal pain. No recent illnesses. No fever no chills. Chest x-ray showed chronic emphysematous changes without acute pulmonary process. EKG showed atrial fibrillation with ventricular rate 91 D-dimer not elevated BNP 3050 Troponin negative TSH 3.5 within normal limits Review of Systems Constitutional: Patient denies any fever or chills . No generalized weakness or weight loss. Abdomen: Patient denied nausea vomiting and diarrhea and abdominal pain. Cardiovascular: Patient denies any chest pain or short of breath no palpitations. Respiratory: patient denied any cough is from production. No shortness of breath Neurologic: Patient denied any numbness or tingling headache. Musculoskeletal: Patient denies any complaints of joint swelling or deformity. Skin: Negative Psychiatric: Negative Endocrine: No heat or cold intolerance. No recent weight gain. Genitourinary: No dysuria or hematuria. All other 14 point ROS negative except the above Past Medical History Past Medical History: Atrial Fibrillation, CVA/TIA, GERD/Reflux, Hypertension Additional Past Medical History / Comment(s): Skin cancer removed 07/17 from right ear History of Any Multi-Drug Resistant Organisms: None Reported Past Surgical History: Heart Catheterization With Stent Date of Last Stent Placement:: 2008 Past Psychological History: No Psychological Hx Reported Smoking Status: Former smoker Past Alcohol Use History: Daily, Heavy Additional Past Alcohol Use History / Comment(s): Pt states, "I don't drink much anymore at all, I drank 12 beers in the last year." Past Drug Use History: None Reported Additional Drug Use History / Comment(s): Pt quit smoking, "around 40 years ago." - Past Family History Father Family Medical History: Myocardial Infarction ([place]) Mother Family Medical History: Cancer Additional Family Medical History / Comment(s): colon cancer Medications and Allergies Home Medications Medication Instructions Recorded Confirmed Type Atenolol [Tenormin] 25 mg PO HS 09/14/17 12/23/18 History Cholecalciferol (Vitamin D3) 2,000 unit PO DAILY 09/14/17 12/23/18 History [Vitamin D3] Ferrous Sulfate [Iron (65 MG 325 mg PO DAILY 09/14/17 12/23/18 History Elemental)] Lansoprazole [Prevacid] 30 mg PO DAILY 09/14/17 12/23/18 History Atorvastatin [Lipitor] 40 mg PO DAILY #30 tab 09/18/17 12/23/18 Rx Apixaban [Eliquis] 5 mg PO BID #60 tab 09/19/17 12/23/18 Rx Allergies Allergy/AdvReac Type Severity Reaction Status Date / Time penicillin G AdvReac Unknown Verified 12/23/18 09:41 [From Bicillin L-A] Physical Exam Vitals: Vital Signs Temp Pulse Pulse Resp BP BP Pulse Ox 12/23/18 15:05 97.7 F 88 16 119/74 99 12/23/18 12:45 97.6 F 77 16 92/53 99 12/23/18 12:00 92 18 101/77 97 12/23/18 11:30 85 12 98 12/23/18 11:00 86 12 101/60 98 12/23/18 10:30 89 18 104/77 98 12/23/18 10:00 75 18 123/85 99 12/23/18 09:29 97.8 F 71 18 123/85 100 Intake and Output 12/23/18 12/23/18 12/23/18 06:59 14:59 22:59 Other: Weight 70.307 kg PHYSICAL EXAMINATION: Patient is lying in the bed comfortably, no acute distress, awake alert and oriented.. HEENT: Normocephalic. Neck is supple. Pupils reactive. Nostrils clear. Oral cavity is moist. Ears reveal no drainage. Neck reveals no JVD, carotid bruits, or thyromegaly. CHEST EXAMINATION: Trachea is central. Symmetrical expansion. Lung alfred clear to auscultation and percussion. CARDIAC: Normal S1, S2 with no gallops. No murmurs ABDOMEN: Soft. Bowel sounds normal. No organomegaly. No abdominal bruits. Extremities: reveal no edema. No clubbing or cyanosis Neurologically awake, alert, oriented x3 with well-coordinated movements. No focal deficits noted Skin: No rash or skin lesions. Psychiatric: Coperative. Nonsuicidal Musculoskeletal: No joint swelling or deformity. Normal range of motion. Results CBC & Chem 7: 12/23/18 09:50 12/23/18 09:50 Labs: Abnormal Lab Results - Last 24 Hours (Table) 12/23/18 Range/Units 09:50 BUN 25 H (9-20) mg/dL Creatinine 1.41 H (0.66-1.25) mg/dL Thrombosis Risk Factor Assmnt - DVT/VTE Prophylaxis DVT/VTE Prophylaxis: Pharmacologic Prophylaxis ordered - Choose All That Apply Each Risk Factor Represents 3 Points: Age 75 years or older Thrombosis Risk Factor Assessment Total Risk Factor Score: 3 Thrombosis Risk Factor Assessment Level: Moderate Risk Assessment and Plan Assessment: Paroxysmal atrial fibrillation with recurrent episodes symptomatic with dizziness and dyspnea. Coronary artery disease with history of stent placement GERD Hypertension History of CVA/TIA Previous history of smoking History of heavy alcohol abuse Plan: Patient will be continued on metoprolol and anticoagulation with Eliquis. Amiodarone was added as per cardiology. 2-D echocardiogram was ordered. Maintaining a HEIDY with cardioversion with the patient continues to be in atrial fibrillation. Currently maintaining sinus rhythm now. Further recommendations based on the clinical course. Cardiology is on board. Time with Patient: Greater than 30
[2018-12-24 08:02] LABS: Calcium 8.8 mg/dL (8.4-10.2); Potassium 4.5 mmol/L (3.5-5.1)
[2018-12-24] MEDS ORDERED: SODIUM CHLORIDE 0.9% 1,000 ML IV SCH (09:00)
[2018-12-24] MEDS ORDERED: CHOLECALCIFEROL 1,000 UNIT TAB PO SCH (09:00)
[2018-12-24] MEDS ORDERED: FERROUS SULFATE 325 MG TAB PO SCH (09:00)
[2018-12-24] MEDS ORDERED: AMIODARONE 200 MG TAB PO SCH (09:00)
[2018-12-24] MEDS ORDERED: PANTOPRAZOLE 40 MG TABLET PO SCH (09:00)
[2018-12-24] MEDS ORDERED: ATORVASTATIN 40 MG TAB PO SCH (09:00)
[2018-12-24] MEDS: APIXABAN 5 MG TAB PO SCH (09:12)
--- NOTE | 2018-12-24 09:25 | PN ---
PROGRESS NOTE Mr. Burns is a 78-year-old male with history of coronary artery disease, history of stenting 10 years ago, paroxysmal atrial fibrillation, anticoagulated, who came in with atrial fibrillation that was persistent. He was feeling fatigued. He is back in sinus mechanism. He felt dizzy this morning when he got to the bathroom with orthostatic hypotension. Otherwise, he denying any chest pain, no palpitation. His breathing is stable, but he has not been ambulating. He continued to be on amiodarone 400 mg twice a day, Eliquis 5 mg twice a day, atenolol 25 mg daily, Lipitor 40 mg daily. PHYSICAL EXAMINATION: Blood pressure 104/50 with the heart rate in the high 50s. LUNGS: Clear. HEART: Regular rate and rhythm. S1, S2. No S3. No rub. ABDOMEN: Soft, nontender. EXTREMITIES: No edema. LAB DATA: Lab data revealed a BUN and creatinine 25 and 1.56, potassium 4.5. IMPRESSION: 1. Paroxysmal atrial fibrillation back in sinus mechanism. 2. Chronic kidney disease with no significant changes. 3. History of hyperlipidemia. 4. Prior history of smoking. RECOMMENDATION: The patient will receive IV fluid. I will decrease the dose of amiodarone to 200 mg twice a day, increase his activity. If he remains stable by the afternoon, he may be able to be discharged home. I will review the results of his echocardiogram. If he is stable, we will see him again in the office in 2 weeks. MMODL / IJN: [id number] /
[2018-12-24 10:49] VITALS: TEMP 97.4
[2018-12-24 16:41] VITALS: BP 115/67; PULSE 63
--- NOTE | 2018-12-28 07:43 | DS ---
DISCHARGE SUMMARY DATE OF ADMISSION: 12/23/2018 DATE OF DISCHARGE: 12/24/2018 CONSULTATION: Dr. Issa from Cardiology. FINAL DIAGNOSES: 1. Paroxysmal atrial fibrillation, symptomatic. 2. Gastroesophageal reflux disease. 3. Essential hypertension. 4. Coronary artery disease with stent. 5. Chronic kidney disease stage 3, probably from nephrosclerosis. HOSPITAL COURSE: This patient presented with episodes of dizziness, found to be in paroxysmal atrial fibrillation. The patient was given IV fluids. No further intervention was done. Seen by Dr. Issa from Cardiology. Dose of amiodarone was adjusted. Eliquis to be continued. Care was discussed with the patient. PHYSICAL EXAMINATION: On examination, pulse 63, blood pressure 105/68. LUNGS: Fair air entry. CARDIOVASCULAR: First and second sounds normal. DISCHARGE MEDICATIONS: 1. Vitamin D3, 2000 units p.o. daily. 2. Iron 325 p.o. daily. 3. Prevacid 30 mg p.o. daily. 4. Lipitor 40 mg p.o. daily. 5. Eliquis 5 mg p.o. b.i.d. 6. Amiodarone 200 mg p.o. b.i.d. 7. Tenormin 12.5 mg p.o. b.i.d. Follow up with Dr. Issa on 01/07/2019. Follow up with Dr. Marisol Diop 12/27/2018. MMODL / IJN: [id number] /
== END 2018-12-24 18:15 | disposition home or self-care (01) ==
LOC: EC 09:24 → 3SCARD 11:42
PROVIDERS: ADMIT Hospitalist; ATTEND Hospitalist
DX: I48.0 Paroxysmal atrial fibrillation (principal); N17.9 Acute kidney failure, unspecified; I95.1 Orthostatic hypotension; I25.10 Atherosclerotic heart disease of native coronary artery without angina pectoris; I12.9 Hypertensive chronic kidney disease with stage 1 through stage 4 chronic kidney disease, or unspecified chronic kidney disease; N18.3 Chronic kidney disease, stage 3 (moderate); E78.5 Hyperlipidemia, unspecified; K21.9 Gastro-esophageal reflux disease without esophagitis; Z79.01 Long term (current) use of anticoagulants; Z79.899 Other long term (current) drug therapy; Z88.0 Allergy status to penicillin; Z87.891 Personal history of nicotine dependence; Z95.5 Presence of coronary angioplasty implant and graft; Z85.828 Personal history of other malignant neoplasm of skin; Z86.59 Personal history of other mental and behavioral disorders; Z86.73 Personal history of transient ischemic attack (TIA), and cerebral infarction without residual deficits; Z82.49 Family history of ischemic heart disease and other diseases of the circulatory system; Z80.0 Family history of malignant neoplasm of digestive organs
CPT/HCPCS: 99285; 36415; 85379; 83880; 80053; 80048; 84443; 83735; 84484; 85025; 85610; 85730; 71046; G0378 ×2

== ENCOUNTER → 2019-10-10 | Outpatient (CLI) | payer MEDICARE ==
--- NOTE | 2019-10-10 14:21 | CT ---
EXAMINATION TYPE: CT brain wo con DATE OF EXAM: 10/10/2019 COMPARISON: 09/14/2017 HISTORY: Memory loss for 2-[address] DLP: 1177 mGycm Automated exposure control for dose reduction was used. FINDINGS: There is moderate generalized degenerative change. There is low-attenuation the white matter which is nonspecific. There is a left parietal area of remote infarction. There is no midline shift or mass e ffect. No acute hemorrhage. Calvarium intact. Degenerative and nonspecific white matter changes. Toro te left parietal infarct noted. No acute hemorrhage or mass effect. IMPRESSION: DEGENERATIVE CHANGE AND NONSPECIFIC WHITE MATTER CHANGES MOST TYPICAL REMOTE ISCHEMIA. REMOTE LEFT PA RIETAL INFARCT NOTED.
== END | disposition home or self-care (01) ==
LOC: RADCTMAIN 13:26
PROVIDERS: ATTEND Family Medicine
DX: I67.82 Cerebral ischemia (principal); R90.82 White matter disease, unspecified
CPT/HCPCS: 70450

== ENCOUNTER → 2024-01-03 | Outpatient (CLI) | payer MEDICARE ==
[2024-01-03 15:29] LABS: HCT 38.4 % (39.6-50.0); HGB 12.7 g/dL (13.0-17.0); MCH 32.1 pg (27.0-32.0); MCHC 33.1 g/dL (32.0-37.0); Mean Platelet Volume 10.7 FL (9.5-12.2); NRBC Per 100 WBC 0 X 10*3/uL (0.00-0.01); Platelet Count 154 X 10*3/uL (140-440); RBC 3.96 X 10*6/uL (4.40-5.60); RDW 12.6 % (11.5-14.5); WBC 5.49 X 10*3/uL (4.50-10.00)
[2024-01-03 15:42] LABS: NT-Pro-B-Type Natriuretic Pept 864 pg/mL (0-450)
[2024-01-03 15:48] LABS: ALT 13 U/L (10-49); AST 16 U/L (14-35); Albumin 3.9 g/dL (3.8-4.9); Albumin/Globulin Ratio 1.95 Ratio (1.60-3.17); Alkaline Phosphatase 74 U/L (41-126); BUN/Creat Ratio 9.75 Ratio (12.00-20.00); Blood Urea Nitrogen 15.6 mg/dL (9.0-27.0); Calcium 8.8 mg/dL (8.7-10.3); Chloride 107 mmol/L (96-109); Chol/HDL Ratio 2.63 Ratio; Glucose 104 mg/dL (70-110); LDL Cholesterol,Calculated 42.5 mg/dL (0.0-131.0); Potassium 4.4 mmol/L (3.5-5.5); Sodium 141 mmol/L (135-145); T4, Free (Free Thyroxine) 1.14 ng/dL (0.80-1.80); Total Bilirubin 0.5 mg/dL (0.3-1.2); Total Protein 5.9 g/dL (6.2-8.2)
== END ==
LOC: LABWHC1 09:52
PROVIDERS: ATTEND Internal Medicine Interventional Cardiology
DX: I48.0 Paroxysmal atrial fibrillation (principal); E03.9 Hypothyroidism, unspecified; E78.2 Mixed hyperlipidemia; R06.02 Shortness of breath
CPT/HCPCS: 36415; 80053; 80061; 83880; 84439; 84443; 85027